=== PATIENT | male | born 1955 ===

== ENCOUNTER 2020-03-11 10:01 | Emergency (ER) | payer MEDICARE, SELFPAY ==
--- NOTE | 2020-03-11 10:08 | XR_ITS ---
WS: [id number] Exam: XR wrist LT min 3V* [id number] Date/Time of Exam: 03/11/2020 10:11 AM Reason For Exam: injury No acute fracture or dislocation. There appears to be dorsal subluxation of the distal ulna in relati onship to the radius. Mild dorsal soft tissue swelling. XR/XR wrist LT min 3V* [id number] IMPRESSION: 1. No fracture or dislocation. 2. There is probably dorsal subluxation of the distal ulna with the dorsal soft tissue swelling of the wrist.
[2020-03-11 10:11] VITALS: BP 133/70; PULSE 62; RESP 12; TEMP 36.2; O2SAT 99; BMI 27.8
[2020-03-11 10:19] VITALS: PULSE 64; RESP 18; O2SAT 98
--- NOTE | 2020-03-11 11:22 | W.ED.EXTPRO ---
HPI - Extremity Problem General: Chief complaint: Extremity Injury, Upper Stated complaint: left wrist pain Time Seen by Provider: 03/11/20 10:08 Source: patient Mode of arrival: ambulatory Limitations: no limitations History of Present Illness: HPI Narrative: 64 Male patient presents to ER with left wrist pain that started yesterdady. Pt states he did not have any injury of trauma but does have history of gout. Pt denies any fever, numbness or tingling. Associated symptoms: Deny chest pain, fever(s) or rash Review of Systems Const: Denies: fever(s), chills, body aches, change in appetite, change in weight, fatigue, malaise or diaphoresis Eyes: Denies: change in vision, blurry vision, blind spots, photophobia, eye discomfort, eye discharge, eye redness, floaters or seeing flashes ENMT: Denies: throat pain, uvular edema, enlarged tonsils, odynophagia, hoarseness, mouth pain, swelling of lips/tongue, oral sores, bleeding gums, dental pain, dry mouth, ear or mastoid pain, ear discharge, change in hearing, tinnitus, disequilibrium, nasal discharge, nasal congestion, post nasal drip or sinus pain Card: Denies: chest pain, palpitations, irregular heart rhythm, edema, swelling of feet/ankles, lightheadedness, syncope, pre-syncope, dyspnea on exertion, orthopnea, leg pain with exertion or acrocyanosis Resp: Denies: dyspnea, productive cough, non-productive cough, wheezing, stridor, pain on inspiration, change in phlegm color, hemoptysis or chest congestion GI: Denies: abdominal pain, nausea, vomiting, hematemesis, dysphagia, diarrhea, constipation, GI cramping, change in bowel habits or rectal pain : Denies: flank pain, dysuria, urinary frequency, urinary urgency, urinary hesitancy or hematuria Musc: Reports: extremity pain; Denies: neck pain, back pain, extremity swelling, joint pain, joint swelling, joint redness or deformity Skin/Breast: Denies: rash, pruritus, erythema, sores, new lesions, changes in skin color or dry skin Neuro: Denies: headache(s), numbness in extremities, weakness in extremities, sensory changes, lack of coordination, difficulty walking, frequent falls, dizziness, vertigo, confusion, behavioral changes, Slurred speech present, difficulty communicating thoughts or seizure-like activity Psych: Denies: anxiety, depression, suicidal ideation or homicidal ideation Endo: Denies: polyuria, polydipsia, tired all the time, cold intolerance, excessive sweating, flushing, hot flashes or heat intolerance Chucky/Lymph: Denies: easy bruising, easy bleeding, petechiae, purpura, enlarged lymph nodes or tender lymph nodes All/Imm: Denies: urticaria, throat swelling, tongue swelling, facial swelling, acute wheezing or itchy eyes PFSH ED PFSH: Social History Smoking and tobacco status: never smoked Alcohol intake: never Substance/Drug Use: never Physical Exam Const: COMMON NORMALS: no acute distress, average body habitus, no limitations and healthy appearing HENMT: COMMON NORMALS: normocephalic and atraumatic HEAD & SCALP: normocephalic and atraumatic THROAT: no uvular edema Eye: COMMON NORMALS: Equal, round and reactive pupils present PUPIL: Yes Equal, round and reactive pupils present Neck/C-Spine: COMMON NORMALS: full ROM Lymph: LYMPHATIC: no lymphadenopathy noted Resp: COMMON NORMALS: normal respiratory effort, No retractions, No use of accessory muscles and clear to auscultation bilaterally AUSCULTATION: clear to auscultation bilaterally Cardio: COMMON NORMALS: regular rate and regular rhythm RATE: regular rate RHYTHM: regular rhythm Extremity: COMMON NORMALS: capillary refill normal, no joint enlargement, no calf tenderness and no pedal edema LEFT UPPER EXTREMITY: Yes wrist Left wrist: Yes inspection (Erythematous and warm to touch), Yes palpation (Mildly tender), Yes ROM (Good range of motion) and Yes neurovascular exam (Neurovascularly intact distally) Course Vital Signs: Vital signs: Vital Signs Temperature 97.2 F L 03/11/20 10:11 Pulse Rate 64 03/11/20 10:19 Respiratory Rate 18 03/11/20 10:19 Blood Pressure 133/70 03/11/20 10:11 Pulse Oximetry 98 03/11/20 10:19 MDM - Extremity (Nontraumatic) MDM Narrative: Medical decision making narrative: Patient is well-appearing nontoxic in no acute distress. Given patient's findings on x-ray I will go ahead and place him in a cock-up wrist splint this does seem chronic in nature patient does not have any tenderness at the site of subluxation on x-ray again I will go ahead and place him in a cock-up wrist splint and have him follow-up with Ortho. I will also treat patient for a gout flareup I will give patient indomethacin and short course of steroids and have him follow-up with his primary care physician. Patient is neurovascularly intact distal to injury. Patient is afebrile. Patient has good cap refill. Discharge Plan Discharge Patient Disposition: Home Clinical Impression: Gout, Acute wrist pain Condition: Stable Prescriptions: New prednisone 20 mg tablet 20 mg PO BID 5 Days Qty: 10 RF: 0 indomethacin 25 mg capsule 25 mg PO QID Qty: 20 RF: 0 Discharge Orders: Discharge ED (Routine); Ordered 03/11/20 Ordered By: Teresa Monzon Discharge Diet: Advance as tolerated Discharge Activity: Increase activity as tolerated Activity Restrictions/Additional Instructions: Please wear splint for comfort and follow up with Ortho as needed. Take meds as prescribed Please follow up with PCP regarding Gout Please follow up with Ortho and continue to wear splint for comfort until seen by ortho Coding Level of Care Code ED Dna Sequencing Associate for Lilia Farmer
--- NOTE | 2020-03-14 10:48 | DCPLANNER ---
manager food beverage had message to schedule a follow up appointment for patient with ortho. manager food beverage called the ortho clinic, spoke with Jessa, gave clinic patients information. manager food beverage was told that patients information would be printed and reviewed. Clinic will call patient with appointment information.
--- NOTE | 2020-03-22 07:56 | DCPLANNER ---
Patient had a follow up appointment scheduled for 03.16.20 with ortho - patient did not attend appointment.
== END 2020-03-11 11:55 | disposition home or self-care (01) ==
PROVIDERS: Emergency Provider Registered Nurse
DX: M25.532 Pain in left wrist (principal); M10.9 Gout, unspecified
CPT/HCPCS: 12345; 29125; 73110; 99281; 99283

== ENCOUNTER 2020-07-25 04:57 | Emergency (ER) | payer MEDICARE, SELFPAY ==
[2020-07-25 05:03] VITALS: BP 126/65; PULSE 70; RESP 18; TEMP 36.2; O2SAT 96; BMI 26.6
--- NOTE | 2020-07-25 05:23 | CTR_ITS ---
PROCEDURE INFORMATION: Exam: CT Head Without Contrast Exam date and time: 07/25/2020 5:33 AM Age: 65 years old Clinical indication: Other: Generalized weakness; Additional info: Headache, weight loss, weakness TECHNIQUE: Imaging protocol: Computed tomography of the head without contrast. Radiation optimization: All CT scans at this facility use at least one of these dose optimization techniques: automated exposure control; mA and/or kV adjustment per patient size (includes targeted exams where dose is matched to clinical indication); or iterative reconstruction. COMPARISON: No relevant prior studies available. RADIATION DOSE METRICS: Total DLP (mGy-cm): 912.54 FINDINGS: Brain: No intracranial hemorrhage, edema or other acute abnormalities are seen in the brain. There is no mass effect or midline shift. There is moderate chronic atrophy with prominence of the ventricles and sulci. Cerebral ventricles: Ventricles are prominent due to chronic atrophy. Bones/joints: Unremarkable. No acute fracture. Paranasal sinuses: Visualized sinuses are unremarkable. No fluid levels. Mastoid air cells: Visualized mastoid air cells are well aerated. Soft tissues: Unremarkable. CT/CT head wo con* [id number] IMPRESSION: No acute intracranial abnormality. Radiation Dose CTDIVOL = (mGy): DLP = 912.54 (mGy-cm)
--- NOTE | 2020-07-25 05:23 | XRR_ITS ---
PROCEDURE INFORMATION: Exam: XR Chest Exam date and time: 07/25/2020 5:33 AM Age: 65 years old Clinical indication: Other: Weakness TECHNIQUE: Imaging protocol: XR of the chest. Views: 1 view. COMPARISON: No relevant prior studies available. FINDINGS: Lungs: Unremarkable. No consolidation. Pleural spaces: Unremarkable. No pleural effusion. No pneumothorax. Heart/Mediastinum: Unremarkable. No cardiomegaly. Bones/joints: Unremarkable. XR/XR chest 1V portable [id number] IMPRESSION: No acute findings.
--- NOTE | 2020-07-25 05:24 | ECG_ITS ---
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 Measurements Intervals [place] Rate: 59 P: 55 LA: 178 QRS: -61 QRSD: 85 T: 54 QT: 401 QTc: 398 Interpretive Statements SINUS BRADYCARDIA MARKED LEFT AXIS DEVIATION [QRS AXIS < -30] WARNING: DATA QUALITY MAY AFFECT INTERPRETATION No previous ECG available for comparison Electronically Signed On 07-26-2020 0:37:59 CDT by Ant Layne M.D. [id number]
[2020-07-25] MEDS: sodium chloride 0.9% 1,000 ML 999 ML IV (05:29)
--- NOTE | 2020-07-25 05:29 | PC.NURSE ---
Provided pt urinal and request spec.
[2020-07-25 05:30] LABS: Basophils % 0.4 %; Eosinophils % 0.4 %; Hemoglobin 14.1 g/dL (11.7-16.6); Lymphocytes # 1.8 10^3/uL (0.8-4.8); Lymphocytes % 35.4 %; Mean Corpuscular HGB Conc 32.8 g/dL (30.0-36.0); Mean Corpuscular Hemoglobin 29.1 pg (28.0-34.0); Mean Corpuscular Volume 88.8 fL (80-94); Mean Platelet Volume 9.1 fL (7.4-10.4); Monocytes # 0.4 10^3/uL (0.2-0.9); Monocytes % 8.1 %; Neutrophils # 2.81 10^3/uL (1.8-7.7); Neutrophils % 55.3 %; Nucleated Red Blood Cells % 0 %; Platelet Count 215 10^3/cmm (130-400); Red Blood Count 4.84 10^6/uL (4.1-5.3); Red Cell Distribution Width 12.9 % (12.1-15.1); White Blood Count 5.1 10^3/uL (4.0-10.0)
--- NOTE | 2020-07-25 05:35 | ED_ITS ---
HPI - Weakness General: Chief complaint: Weakness Stated complaint: weakness/loss of appetite Time Seen by Provider: 07/25/20 05:03 History of Present Illness: HPI Narrative: 65-year-old male who is a poor historian. He gives a rather nebulous history weight loss to generalized weakness and fatigue over at least the last month, maybe longer. He notes his weight loss has been 20 pounds or so. Evidently he ran a fever 5 nights ago, but none since. No chills or sweats at night. No significant chest pain or shortness of breath. No vomiting. He notes a headache, that again is a nebulous poorly localized headache. He notes that he has multiple family members with liver problems MD Complaint: generalized weakness and lack of energy Onset (ago): unknown Duration: constant Location: generalized Migration: none Severity: moderate Relieving factors: none Exacerbating factors: none Associated symptoms: Reports fever(s) (1), headache(s) and nausea; Denies chest pain, confusion, diaphoresis or vomiting Review of Systems Const: Reports: fever(s) (1); Denies: diaphoresis Card: Denies: chest pain GI: Reports: nausea; Denies: abdominal pain or vomiting : Denies: flank pain or difficulty urinating Musc: Reports: muscle weakness Neuro: Reports: headache(s); Denies: numbness in extremities, dizziness or confusion PFS ED PFSH: Social History Smoking and tobacco status: never smoked Alcohol intake: never Physical Exam Const: COMMON NORMALS: patient oriented x3 GENERAL APPEARANCE: well developed ORIENTATION/CONSCIOUSNESS: Yes oriented to person, Yes oriented to place and Yes oriented to time HENMT: COMMON NORMALS: normocephalic, external ears normal and Normal external nose present HEAD & SCALP: normocephalic FACE & SINUS: normal facial exam NOSE: Normal external nose present and No nasal discharge present EXTERNAL EAR: Yes external ears normal Eye: COMMON NORMALS: Equal, round and reactive pupils present, EOMs intact bilaterally and conjunctivae normal EYELID: eyelids normal CONJUNCTIVA: Yes conjunctivae normal PUPIL: Yes Equal, round and reactive pupils present Neck/C-Spine: GENERAL: No tracheal deviation Chest: COMMONS NORMALS: normal inspection of the chest CHEST: No tenderness Resp: COMMON NORMALS: clear to auscultation bilaterally EFFORT & INSPECTION: No tachypneic, No respiratory distress, No retractions, No uses accessory muscles and No tracheal deviation AUSCULTATION: clear to auscultation bilaterally, no rhonchi, no wheezes and lung sounds not diminished Cardio: COMMON NORMALS: regular rate and regular rhythm RATE: regular rate RHYTHM: regular rhythm HEART SOUNDS: no murmurs PERIPHERAL PULSES: radial pulses present GI: INSPECTION: No abdominal distension AUSCULTATION: No Hyperactive bowel sounds present and No Hypoactive bowel sounds present PALPATION: No Guarding due to palpation present (GI) and No Rigid due to palpation PERCUSSION: no dullness to percussion and no tympanic to percussion Neuro: COMMON NORMALS: patient oriented x3 and CN's II-XII intact bilaterally SENSORIUM/ORIENTATION: Yes oriented to person, Yes oriented to place and Yes oriented to time COORDINATION/BALANCE: [id number] test normal SPEECH: speech normal SENSORY EXAM: Yes extremities (Normal) MOTOR EXAM: Pronator motor function not present and no tremor noted COORDINATION: [id number] test normal Psych: COMMON NORMALS: mental status grossly normal Skin: COMMON NORMALS: no rashes or lesions noted GENERAL SKIN EXAM: no rashes or lesions noted Course Vital Signs: Vital signs: Vital Signs Temperature 97.1 F L 07/25/20 05:03 Pulse Rate 74 07/25/20 06:34 Respiratory Rate 16 07/25/20 06:34 Blood Pressure 116/60 07/25/20 06:34 Pulse Oximetry 99 07/25/20 06:34 MDM - Weakness MDM Narrative: Medical decision making narrative: Mild drop in sodium of 132. White blood cell count is 5.1. Hemoglobin 14. Electrolytes and creatinine are normal. His liver enzymes are normal. His INR is 0.0 0.95. His chest x-ray is negative. CT of the head is negative for anything acute. No mass. Urinalysis is negative as well no cause for his fatigue and weight loss identified. Because he ran a fever last week, one could consider COVID-19 testing. Lab Data: Labs: Lab Results 07/25/20 07/25/20 07/25/20 Range/Units 05:07 05:07 05:07 WBC 5.1 (4.0-10.0) 10^3/ uL RBC 4.84 (4.1-5.3) 10^6/u L Hgb 14.1 (11.7-16.6) g/dL Hct 43.0 (42.0-52.0) % MCV 88.8 (80-94) fL MCH 29.1 (28.0-34.0) pg MCHC 32.8 (30.0-36.0) g/dL RDW 12.9 (12.1-15.1) % Plt Count 215 (130-400) 10^3/c mm MPV 9.1 (7.4-10.4) fL Neut % (Auto) 55.3 % Lymph % (Auto) 35.4 % Sampson % (Auto) 8.1 % Eos % (Auto) 0.4 % Baso % (Auto) 0.4 % Neut # (Auto) 2.81 (1.8-7.7) 10^3/u L Lymph # (Auto) 1.8 (0.8-4.8) 10^3/u L Sampson # (Auto) 0.4 (0.2-0.9) 10^3/u L Eos # (Auto) 0.0 (0.0-0.8) 10^3/u L Baso # (Auto) 0.0 (0.0-0.1) 10^3/u L Nucleated RBC % (a uto) 0 % Nucleated RBCs # 0.0 /100WBC PT 12.90 (12.1-14.9) SECO NDS INR 0.95 (0.8-1.2) Sodium 132 L (136-145) mmol/L Potassium 3.9 (3.5-5.1) mmol/L Chloride 99 (98-107) mmol/L Carbon Dioxide 24 (22-29) mmol/L Anion Gap 12.9 (5-19) BUN 11 (8-23) mg/dL Creatinine 0.8 (0.7-1.2) mg/dL GFR Calculation 96.4 (90-130) mL/min Glucose 101 (65-115) mg/dL Calculated Osmolal ity 274 L (285-295) mOsm/k g Lactate (0.5-2.2) mmol/L Calcium 8.6 (8.5-10.5) mg/dL Total Bilirubin 0.8 (0.15-1.2) mg/dL AST 33 (0-40) U/L ALT 31 (0-41) U/L Alkaline Phosphata se 76 (40-130) IU/L Creatine Kinase 104 (39-308) U/L C-Reactive Protein 24.0 H (0.0-4.9) mg/L Total Protein 7.3 (6.6-8.7) g/dL Albumin 3.7 (3.5-5.2) g/dL Globulin 3.6 (1.3-4.6) g/dL Lipase 50 (13-60) U/L Urine Color (Yellow) Urine Appearance (CLEAR) Urine pH (5-7) Ur Specific Gravit y (1.005-1.030) Urine Protein (Negative) Urine Glucose (UA) (Normal) Urine Ketones (Negative) Urine Blood (Negative) Urine Nitrate (Negative) Urine Bilirubin (Negative) Urine Urobilinogen (Negative) mg/dL Ur Leukocyte Charlette ase (Negative) 07/25/20 07/25/20 Range/Units 05:07 05:45 WBC (4.0-10.0) 10^3/ uL RBC (4.1-5.3) 10^6/u L Hgb (11.7-16.6) g/dL Hct (42.0-52.0) % MCV (80-94) fL MCH (28.0-34.0) pg MCHC (30.0-36.0) g/dL RDW (12.1-15.1) % Plt Count (130-400) 10^3/c mm MPV (7.4-10.4) fL Neut % (Auto) % Lymph % (Auto) % Sampson % (Auto) % Eos % (Auto) % Baso % (Auto) % Neut # (Auto) (1.8-7.7) 10^3/u L Lymph # (Auto) (0.8-4.8) 10^3/u L Sampson # (Auto) (0.2-0.9) 10^3/u L Eos # (Auto) (0.0-0.8) 10^3/u L Baso # (Auto) (0.0-0.1) 10^3/u L Nucleated RBC % (a uto) % Nucleated RBCs # /100WBC PT (12.1-14.9) SECO NDS INR (0.8-1.2) Sodium (136-145) mmol/L Potassium (3.5-5.1) mmol/L Chloride (98-107) mmol/L Carbon Dioxide (22-29) mmol/L Anion Gap (5-19) BUN (8-23) mg/dL Creatinine (0.7-1.2) mg/dL GFR Calculation (90-130) mL/min Glucose (65-115) mg/dL Calculated Osmolal ity (285-295) mOsm/k g Lactate 0.9 (0.5-2.2) mmol/L Calcium (8.5-10.5) mg/dL Total Bilirubin (0.15-1.2) mg/dL AST (0-40) U/L ALT (0-41) U/L Alkaline Phosphata se (40-130) IU/L Creatine Kinase (39-308) U/L C-Reactive Protein (0.0-4.9) mg/L Total Protein (6.6-8.7) g/dL Albumin (3.5-5.2) g/dL Globulin (1.3-4.6) g/dL Lipase (13-60) U/L Urine Color Yellow (Yellow) Urine Appearance Clear (CLEAR) Urine pH 6.5 (5-7) Ur Specific Gravit y 1.015 (1.005-1.030) Urine Protein Neg (Negative) Urine Glucose (UA) Norm (Normal) Urine Ketones Negative (Negative) Urine Blood Neg (Negative) Urine Nitrate Negative (Negative) Urine Bilirubin 1+ H (Negative) Urine Urobilinogen 8 H (Negative) mg/dL Ur Leukocyte Charlette ase Negative (Negative) Discharge Plan Discharge Patient Disposition: Home Clinical Impression: Weakness generalized Condition: Stable Prescriptions: No Action indomethacin 25 mg capsule 25 mg PO QID Qty: 20 RF: 0 Discharge Orders: Discharge ED (Routine); Ordered 07/25/20 Ordered By: Ramana Chang Discharge Diet: Advance as tolerated Discharge Activity: Increase activity as tolerated Patient Instructions: Weakness (Generalized) Activity Restrictions/Additional Instructions: Return for worsening headache, return of fever, mental status changes, lethargy, other concerning symptoms. A referral has been made for you a primary care physician to follow-up with. You should get a call in the next couple of days with that appointment. Coding Level of Care Code ED Director Of Recruiting for Chg Fwd Exam Comprehensive
[2020-07-25 05:38] VITALS: BP 120/69; PULSE 72; RESP 17; O2SAT 99
[2020-07-25 05:38] LABS: INR 0.95 (0.8-1.2)
[2020-07-25 05:40] LABS: Lactate (Lactic Acid level) 0.9 mmol/L (0.5-2.2)
[2020-07-25 05:41] LABS: Alanine Aminotransferase 31 U/L (0-41); Albumin Level 3.7 g/dL (3.5-5.2); Alkaline Phosphatase 76 IU/L (40-130); Anion Gap 12.9 (5-19); Aspartate Amino Transferase 33 U/L (0-40); Blood Urea Nitrogen 11 mg/dL (8-23); Calcium 8.6 mg/dL (8.5-10.5); Carbon Dioxide 24 mmol/L (22-29); Chloride 99 mmol/L (98-107); Creatine Phosphokinase 104 U/L (39-308); Globulin 3.6 g/dL (1.3-4.6); Glomerular Filtration Rate 96.4 mL/min (90-130); Glucose 101 mg/dL (65-115); Lipase 50 U/L (13-60); Osmolality Calculated 274 mOsm/kg (285-295); Potassium 3.9 mmol/L (3.5-5.1); Sodium 132 mmol/L (136-145); Total Bilirubin 0.8 mg/dL (0.15-1.2); Total Protein 7.3 g/dL (6.6-8.7)
[2020-07-25 05:59] LABS: Add Urine Microscopic? NO; Charge for UA Resulting for Rev
[2020-07-25 06:02] LABS: Bilirubin Urine 1+ (Negative); Blood Urine Neg (Negative); Glucose Urine UA Norm (Normal); Ketones Urine Negative (Negative); Leukocyte Esterase Urine Negative (Negative); Nitrate Urine Negative (Negative); Protein Urine Neg (Negative); Specific Gravity, Urine 1.015 (1.005-1.030); Urine Appearance Clear (CLEAR); Urine Color Yellow (Yellow); Urobilinogen Urine 8 mg/dL (Negative); pH Urine 6.5 (5-7)
[2020-07-25 06:34] VITALS: BP 116/60; PULSE 74; RESP 16; O2SAT 99
[2020-07-25 06:46] VITALS: BP 120/70; PULSE 75; RESP 16; O2SAT 99
[2020-07-25 16:42] LABS: Coronavirus Test Green County Detected
--- NOTE | 2020-07-26 09:38 | PC.NURSE ---
pt contacted and given the results of his COVID test
--- NOTE | 2020-07-26 15:38 | DCPLANNER ---
corporate manager had message to speak with patient about getting established with a primary care physician. corporate manager called phone number [phone], unable to speak with patient and unable to leave a voicemail at this time.
== END 2020-07-25 06:47 | disposition home or self-care (01) ==
PROVIDERS: Emergency Provider Emergency Medicine
DX: R53.1 Weakness (principal)
CPT/HCPCS: 70450; 71045; 80053; 81003; 82550; 83605; 83690; 85025; 85610; 86140; 87635; 93005; 96361; 96374; 96375; 99284; J7030

== ENCOUNTER 2020-10-17 14:13 | Emergency (ER) | payer OTHER, SELFPAY ==
--- NOTE | 2020-10-17 14:43 | ECG_ITS ---
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 Measurements Intervals [place] Rate: 59 P: 59 MA: 182 QRS: -47 QRSD: 84 T: 37 QT: 417 QTc: 414 Interpretive Statements SINUS BRADYCARDIA MARKED LEFT AXIS DEVIATION [QRS AXIS < -30] Compared to ECG 07/25/2020 05:09:16 No significant changes Electronically Signed On 10-17-2020 17:31:07 CDT by Ziggy Ramon M.D. [email or web address]
[2020-10-17 16:02] VITALS: BP 160/90; PULSE 57; RESP 17; TEMP 37.1; O2SAT 99
[2020-10-17 17:09] LABS: Basophils # 0.1 10^3/uL (0.0-0.1); Eosinophils # 0.2 10^3/uL (0.0-0.8); Eosinophils % 3.4 %; Hemoglobin 14.3 g/dL (11.7-16.6); Lymphocytes % 37.8 %; Mean Corpuscular HGB Conc 32.5 g/dL (30.0-36.0); Mean Corpuscular Hemoglobin 29.8 pg (28.0-34.0); Mean Corpuscular Volume 91.7 fL (80-94); Mean Platelet Volume 8.9 fL (7.4-10.4); Monocytes # 0.3 10^3/uL (0.2-0.9); Monocytes % 6.3 %; Neutrophils % 51.5 %; Nucleated Red Blood Cells % 0 %; Platelet Count 179 10^3/cmm (130-400); Red Cell Distribution Width 13.7 % (12.1-15.1); White Blood Count 5.2 10^3/uL (4.0-10.0)
[2020-10-17 17:30] LABS: Alanine Aminotransferase 19 U/L (0-41); Albumin Level 4.1 g/dL (3.5-5.2); Alkaline Phosphatase 75 IU/L (40-130); Anion Gap 15.1 (5-19); Aspartate Amino Transferase 22 U/L (0-40); Blood Urea Nitrogen 7 mg/dL (8-23); Calcium 8.8 mg/dL (8.5-10.5); Carbon Dioxide 24 mmol/L (22-29); Chloride 104 mmol/L (98-107); Globulin 3.2 g/dL (1.3-4.6); Glomerular Filtration Rate 134.4 mL/min (90-130); Glucose 86 mg/dL (65-115); Osmolality Calculated 285 mOsm/kg (285-295); Potassium 4.1 mmol/L (3.5-5.1); Sodium 139 mmol/L (136-145); Total Bilirubin 0.5 mg/dL (0.15-1.2); Total Protein 7.3 g/dL (6.6-8.7)
== END 2020-10-17 20:04 ==
LOC: ER 14:25
PROVIDERS: Physician Assistant
DX: Z53.21 Procedure and treatment not carried out due to patient leaving prior to being seen by health care provider (principal)
CPT/HCPCS: 80053; 85025; 93005

== ENCOUNTER 2020-10-18 13:32 | Observation (INO) | payer OTHER, MEDICARE, SELFPAY ==
[2020-10-18 13:47] VITALS: BP 149/83; PULSE 61; RESP 19; TEMP 37; O2SAT 99
--- NOTE | 2020-10-18 20:44 | CTR_ITS ---
PROCEDURE INFORMATION: Exam: CT Angiography Head With Contrast, Arteriography Exam date and time: 10/18/2020 8:44 PM Age: 65 years old Clinical indication: Dizziness and giddiness; Additional info: Vertigo x 1 day, evaluate for vascular injuries TECHNIQUE: Imaging protocol: Computed tomography angiography of the head with contrast. Exam focused on the arteries. 3D rendering (Not supervised by radiologist): MIP and/or 3D reconstructed images were created by the technologist. Radiation optimization: All CT scans at this facility use at least one of these dose optimization techniques: automated exposure control; mA and/or kV adjustment per patient size (includes targeted exams where dose is matched to clinical indication); or iterative reconstruction. Contrast material: OMNI 350; Contrast volume: 95 ml; Contrast route: INTRAVENOUS (IV); COMPARISON: CT head wo con* [id number] 07/25/2020 5:49 AM RADIATION DOSE METRICS: Total DLP (mGy-cm): 2270 FINDINGS: ANTERIOR CIRCULATION: Right internal carotid artery: There is marked atherosclerotic disease with focal high-grade stenosis and near occlusion in the distal cavernous portion of the right internal carotid artery. See axial series 3, image 107 and sagittal series 602, image 58. Right middle cerebral artery: Unremarkable. No occlusion or significant stenosis. No aneurysm. Right anterior cerebral artery: Unremarkable. No occlusion or significant stenosis. No aneurysm. Left internal carotid artery: There is moderate atherosclerotic disease with less than 50% stenosis in the cavernous portion of the left internal carotid artery. Left middle cerebral artery: Unremarkable. No occlusion or significant stenosis. No aneurysm. Left anterior cerebral artery: Unremarkable. No occlusion or significant stenosis. No aneurysm. POSTERIOR CIRCULATION: Right vertebral artery: Unremarkable. No occlusion or significant stenosis. No aneurysm. Left vertebral artery: Unremarkable. No occlusion or significant stenosis. No aneurysm. Basilar artery: Unremarkable. No occlusion or significant stenosis. No aneurysm. Right posterior cerebral artery: Unremarkable. No occlusion or significant stenosis. No aneurysm. Left posterior cerebral artery: Unremarkable. No occlusion or significant stenosis. No aneurysm. Veins: Dural venous sinuses are patent. The left transverse and sigmoid sinus are hypoplastic. Brain: No definite mass, mass effect, or midline shift. Cerebral ventricles: No ventriculomegaly. Bones/joints: Unremarkable. No acute fracture. Soft tissues: Unremarkable. IMPRESSION: 1. 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 2. Atherosclerotic disease with less than 50% stenosis in the of the cavernous portion of the left internal carotid artery. PROCEDURE INFORMATION: Exam: CT Angiography Neck With Contrast Exam date and time: 10/18/2020 8:44 PM Age: 65 years old Clinical indication: Dizziness and giddiness; Additional info: Vertigo x 1 day, evaluate for vascular injuries TECHNIQUE: Imaging protocol: Computed tomography angiography of the neck with contrast. 3D rendering (Not supervised by radiologist): MIP and/or 3D reconstructed images were created by the technologist. Radiation optimization: All CT scans at this facility use at least one of these dose optimization techniques: automated exposure control; mA and/or kV adjustment per patient size (includes targeted exams where dose is matched to clinical indication); or iterative reconstruction. Contrast material: OMNI 350; Contrast volume: 95 ml; Contrast route: INTRAVENOUS (IV); COMPARISON: CT head wo con* [id number] 07/25/2020 5:49 AM RADIATION DOSE METRICS: Total DLP (mGy-cm): 2270 FINDINGS: Right common carotid artery: No stenosis. No dissection or occlusion. Right internal carotid artery: There is mild atherosclerotic disease at the origin of the right internal carotid artery with less than 50% stenosis. Right external carotid artery: No occlusion or stenosis of the origin. Left common carotid artery: No stenosis. No dissection or occlusion. Left internal carotid artery: There is mild atherosclerotic disease at the origin of the left internal carotid artery with less than 50% stenosis. Left external carotid artery: No occlusion or stenosis of the origin. Right vertebral artery: No stenosis. No dissection or occlusion. Left vertebral artery: No stenosis. No dissection or occlusion. Soft tissues: Soft tissues in the neck and thoracic inlet are unremarkable. Bones/joints: No acute fracture. Multilevel disc findings: There is moderate degenerative disc disease in the cervical spine. Lungs: Lung apices are clear. CT/CT angio headneck* [id number] IMPRESSION: No significant arterial stenosis. No occlusion or dissection. REFERENCES: NASCET CRITERIA. The degree of internal carotid artery stenosis is based on NASCET criteria. Normal is no stenosis. Mild is less than 50% stenosis. Moderate is 50-69% stenosis. Severe is 70% to 99% stenosis. Total occlusion is no detectable patent lumen. Radiation Dose CTDIVOL = (mGy): DLP = 2270~2270 (mGy-cm)
--- NOTE | 2020-10-18 20:44 | ECG_ITS ---
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 Measurements Intervals [place] Rate: 55 P: 58 WV: 188 QRS: -82 QRSD: 101 T: 29 QT: 415 QTc: 398 Interpretive Statements SINUS BRADYCARDIA MARKED LEFT AXIS DEVIATION [QRS AXIS < -30] Compared to ECG 10/17/2020 16:11:16 No significant changes Electronically Signed On 10-20-2020 7:41:09 CDT by Marielos Davey M.D. [email or web address] [facility].Alorum/store/[id number]
--- NOTE | 2020-10-18 20:44 | CTR_ITS ---
PROCEDURE INFORMATION: Exam: CT Head Without Contrast Exam date and time: 10/18/2020 8:44 PM Age: 65 years old Clinical indication: Pain; Dizziness; Headache; Additional info: Vertigo, rule out mass TECHNIQUE: Imaging protocol: Computed tomography of the head without contrast. Radiation optimization: All CT scans at this facility use at least one of these dose optimization techniques: automated exposure control; mA and/or kV adjustment per patient size (includes targeted exams where dose is matched to clinical indication); or iterative reconstruction. COMPARISON: CT head wo con* [id number] 07/25/2020 5:49 AM RADIATION DOSE METRICS: Total DLP (mGy-cm): 938.5 FINDINGS: Brain: There is mild diffuse cerebral atrophy. There is no acute intracranial hemorrhage. Cerebral ventricles: There is no significant ventricular dilation. The basal cisterns are unremarkable. Paranasal sinuses: The paranasal sinuses are clear. Mastoid air cells: The mastoid air cells are clear. Bones/joints: There is a chronic fracture of the right medial orbital wall. The calvarium is intact. Soft tissues: The visible extracranial soft tissues are unremarkable. CT/CT head wo con* [id number] IMPRESSION: No acute intracranial abnormality. Radiation Dose CTDIVOL = (mGy): DLP = 938.5 (mGy-cm)
[2020-10-18 20:53] VITALS: BP 166/91; PULSE 54; RESP 16; O2SAT 99
[2020-10-18] MEDS: sodium chloride 0.9% 500 ML IV (21:01)
[2020-10-18] MEDS: meclizine 25 mg tablet 50 MG PO (21:02)
[2020-10-18] MEDS: iohexol 350 mg/mL 100 mL Btl IV (21:11)
[2020-10-18 21:12] LABS: Basophils % 0.7 %; Eosinophils # 0.2 10^3/uL (0.0-0.8); Eosinophils % 2.5 %; Hematocrit 46.5 % (42.0-52.0); Hemoglobin 14.8 g/dL (11.7-16.6); Lymphocytes # 2.4 10^3/uL (0.8-4.8); Lymphocytes % 40.1 %; Mean Corpuscular HGB Conc 31.8 g/dL (30.0-36.0); Mean Corpuscular Hemoglobin 28.7 pg (28.0-34.0); Mean Corpuscular Volume 90.3 fL (80-94); Mean Platelet Volume 8.8 fL (7.4-10.4); Monocytes # 0.5 10^3/uL (0.2-0.9); Monocytes % 7.5 %; Neutrophils # 2.97 10^3/uL (1.8-7.7); Nucleated Red Blood Cells % 0 %; Platelet Count 199 10^3/cmm (130-400); Red Blood Count 5.15 10^6/uL (4.1-5.3); Red Cell Distribution Width 13.8 % (12.1-15.1)
[2020-10-18 21:28] LABS: INR 0.96 (0.8-1.2)
[2020-10-18 21:30] LABS: Partial Thromboplastin Time 33.6 SECONDS (23.9-36.7)
[2020-10-18 21:33] LABS: Anion Gap 12.7 (5-19); Blood Urea Nitrogen 7 mg/dL (8-23); Calcium 9.2 mg/dL (8.5-10.5); Carbon Dioxide 28 mmol/L (22-29); Chloride 102 mmol/L (98-107); Glomerular Filtration Rate 165.9 mL/min (90-130); Glucose 110 mg/dL (65-115); Osmolality Calculated 287 mOsm/kg (285-295); Potassium 3.7 mmol/L (3.5-5.1); Sodium 139 mmol/L (136-145)
[2020-10-18 21:52] LABS: Troponin T (5th) Once 6 ng/L (0-15)
--- NOTE | 2020-10-18 22:58 | ECG_ITS ---
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 Measurements Intervals [place] Rate: 54 P: 60 SD: 203 QRS: -80 QRSD: 88 T: 15 QT: 439 QTc: 419 Interpretive Statements SINUS BRADYCARDIA MARKED LEFT AXIS DEVIATION [QRS AXIS < -30] INFERIOR MYOCARDIAL INFARCTION [40+ ms Q WAVE AND/OR ST/T ABNORMALITY IN II/aVF], PROBABLY OLD Compared to ECG 10/18/2020 20:51:16 Myocardial infarct finding now present Electronically Signed On 10-20-2020 10:01:53 CDT by Marielos Davey M.D. [id number]
--- NOTE | 2020-10-18 23:18 | W.ED.GENADLT ---
HPI - General Adult General: Chief complaint: Dizziness Stated complaint: dizzy, headache Time Seen by Provider: 10/18/20 20:47 History of Present Illness: HPI narrative: Patient is a 65-year-old male with history of ?CAD, hypertension who presents to the emergency room with complaints of 20 of sudden onset vertigo-like symptoms with diaphoresis AND complete L sided weakness lasting for <1 minute. Patient states that symptoms started 2 days ago with he was at rest at home. Since then, reports vertigo symptoms lasting for less than a minute at a time. Patient has had a couple episodes throughout the day. In addition, every time patient stands up he feels lightheaded and sweaty. Patient denies any other focal neurological deficit during the episodes of vertigo. Occasionally patient has ringing in the year, however denies concurrent symptoms. Patient denies any slurring of speech, facial droop, diplopia, and or difficulty swallowing. Onset:22 hrs ago Duration:2 hrs Location:home Severity:moderate/severe Review of Systems Narrative: Constitutional: No fever, no chills. HEENT: No vision changes CV: No chest pain, no palpitations PULM: no cough, no dyspnea. GI: No abdominal pain, no N/V/D. : No dysuria MSKEL: No muscle pain SKIN: No new rashes, no lesions. NEURO: No headache, no focal weakness. HEME: No visible bruises PSYCH: Normal mood PFSH ED PFSH: Medical History (Updated 10/19/20 @ 02:04 by Yvonne Parra MD) COVID-27 Jul 2020 Lung nodule Surgical abdomen Surgical History (Updated 10/19/20 @ 02:03 by Yvonne Parra MD) H/O wrist surgery Family History Mother Cancer Father Cancer Hypertension Denies family history of Diabetes CAD (coronary artery disease) Hyperlipidemia Psychiatric illness Suicide Lung disease Stroke Social History Smoking and tobacco status: former smoker Alcohol intake: never Physical Exam Narrative: EXAM NARRATIVE: Head: Atraumatic Eyes: PERRL, conjunctiva without injection ENT: Mucous membrane moist NECK: Supple, ROM intact LUNGS: LCTAB, no crackles/rhonchi CV: RRR ABDOMEN: Soft, nontender in all quadrants EXTREMITY: Normal ROM SKIN: No rash or erythema NEURO: Mental status: A/Ox3 CN II-XII tested and intact. Sensation intact to sharp/dull differentiation in all extremities. Motor: Normal tone and bulk. No abnormal movements appreciated. No pronator drift. Strength tested and 5/5 in bilateral wrist flexion/extension, elbow flexion/extension, shoulder abduction, straight leg raise, knee flexion/extension, ankle dorsiflexion/plantarflexion. Patient ambulates with a steady gait. Coordination: Finger to nose and heel to luna testing intact bilaterally. PSYCH: Normal mood and affect Course Vital Signs: Vital signs: Vital Signs Temperature 98.0 F 10/19/20 01:04 Pulse Rate 54 L 10/19/20 02:58 Respiratory Rate 18 10/19/20 01:04 Blood Pressure 150/81 10/19/20 02:58 Pulse Oximetry 98 10/19/20 01:04 MDM - General Adult MDM Narrative: Medical decision making narrative: Patient is a 65-year-old male with history of hypertension, questionable CAD who presents the emergency room with 22-hour onset of vertigo symptoms lasting for a minute at a time with transient left-sided weakness and diaphoresis. On exam, patient is neuro exam intact. No signs of posterior circulation involvement. CTA of the head and neck showed significant right ICA occlusion. Case was discussed with Dr. Arceo from neurology who recommended inpatient admission for MRI for further evaluation of vertigo-like symptoms as well as TIA work-up for transient R sided weakness. Received aspirin 325 mg and Plavix 75 mg. The right ICA occlusion does not explain patient's vertigo-like symptom, will need MRI for further evaluation of posterior fossa that may not be picked up on CT. Deposition: Admission for serial troponin, echo, MRI Lab Data: Labs: Lab Results 10/18/20 10/18/20 10/18/20 Range/Units 20:52 20:52 20:52 WBC 6.0 (4.0-10.0) 10^3/ uL RBC 5.15 (4.1-5.3) 10^6/u L Hgb 14.8 (11.7-16.6) g/dL Hct 46.5 (42.0-52.0) % MCV 90.3 (80-94) fL MCH 28.7 (28.0-34.0) pg MCHC 31.8 (30.0-36.0) g/dL RDW 13.8 (12.1-15.1) % Plt Count 199 (130-400) 10^3/c mm MPV 8.8 (7.4-10.4) fL Neut % (Auto) 49.0 % Lymph % (Auto) 40.1 % Clare % (Auto) 7.5 % Eos % (Auto) 2.5 % Baso % (Auto) 0.7 % Neut # (Auto) 2.97 (1.8-7.7) 10^3/u L Lymph # (Auto) 2.4 (0.8-4.8) 10^3/u L Clare # (Auto) 0.5 (0.2-0.9) 10^3/u L Eos # (Auto) 0.2 (0.0-0.8) 10^3/u L Baso # (Auto) 0.0 (0.0-0.1) 10^3/u L Nucleated RBC % (a uto) 0 % Nucleated RBCs # 0.0 /100WBC PT 13.10 (12.1-14.9) SECO NDS INR 0.96 (0.8-1.2) APTT 33.6 (23.9-36.7) SECO NDS Sodium 139 (136-145) mmol/L Potassium 3.7 (3.5-5.1) mmol/L Chloride 102 (98-107) mmol/L Carbon Dioxide 28 (22-29) mmol/L Anion Gap 12.7 (5-19) BUN 7 L (8-23) mg/dL Creatinine 0.5 L (0.7-1.2) mg/dL GFR Calculation 165.9 H (90-130) mL/min Glucose 110 (65-115) mg/dL Calculated Osmolal ity 287 (285-295) mOsm/k g Calcium 9.2 (8.5-10.5) mg/dL Troponin T Gen 5 n g/L (0-15) ng/L Troponin T 120 Min [place] (0-15) ng/L Delta Troponin T 10/18/20 10/18/20 Range/Units 20:52 23:01 WBC (4.0-10.0) 10^3/ uL RBC (4.1-5.3) 10^6/u L Hgb (11.7-16.6) g/dL Hct (42.0-52.0) % MCV (80-94) fL MCH (28.0-34.0) pg MCHC (30.0-36.0) g/dL RDW (12.1-15.1) % Plt Count (130-400) 10^3/c mm MPV (7.4-10.4) fL Neut % (Auto) % Lymph % (Auto) % Clare % (Auto) % Eos % (Auto) % Baso % (Auto) % Neut # (Auto) (1.8-7.7) 10^3/u L Lymph # (Auto) (0.8-4.8) 10^3/u L Clare # (Auto) (0.2-0.9) 10^3/u L Eos # (Auto) (0.0-0.8) 10^3/u L Baso # (Auto) (0.0-0.1) 10^3/u L Nucleated RBC % (a uto) % Nucleated RBCs # /100WBC PT (12.1-14.9) SECO NDS INR (0.8-1.2) APTT (23.9-36.7) SECO NDS Sodium (136-145) mmol/L Potassium (3.5-5.1) mmol/L Chloride (98-107) mmol/L Carbon Dioxide (22-29) mmol/L Anion Gap (5-19) BUN (8-23) mg/dL Creatinine (0.7-1.2) mg/dL GFR Calculation (90-130) mL/min Glucose (65-115) mg/dL Calculated Osmolal ity (285-295) mOsm/k g Calcium (8.5-10.5) mg/dL Troponin T Gen 5 n g/L 6 (0-15) ng/L Troponin T 120 Min [place] 6.00 (0-15) ng/L Delta Troponin T Not Reportable Imaging Data^: Other Imaging: Radiologist's impression: [employer] [id number] Scan ReportSigned Patient: Melinda Meng #: [id number]: [id number]#:[id number]/Sex: 65 / MADM Date: 10/18/20Loc: ERRoom/Bed:Attending Dr: Ordering Provider/Ordering MD: Dawn Atkins MD Date of Service: 10/18/20 Procedure(s): CT angio headneck* [id number] Accession Number(s): [id number] Report Number: [id number] PROCEDURE INFORMATION: Exam: CT Angiography Head With Contrast, Arteriography Exam date and time: 10/18/2020 8:44 PM Age: 65 years old Clinical indication: Dizziness and giddiness; Additional info: Vertigo x 1 day, evaluate for vascular injuries TECHNIQUE: Imaging protocol: Computed tomography angiography of the head with contrast. Exam focused on the arteries. 3D rendering (Not supervised by radiologist): MIP and/or 3D reconstructed images were created by the technologist. Radiation optimization: All CT scans at this facility use at least one of these dose optimization techniques: automated exposure control; mA and/or kV adjustment per patient size (includes targeted exams where dose is matched to clinical indication); or iterative reconstruction. Contrast material: OMNI 350; Contrast volume: 95 ml; Contrast route: INTRAVENOUS (IV); COMPARISON: CT head wo con* [id number] 07/25/2020 5:49 AM RADIATION DOSE METRICS: Total DLP (mGy-cm): 2270 FINDINGS: ANTERIOR CIRCULATION: Right internal carotid artery: There is marked atherosclerotic disease with focal high-grade stenosis and near occlusion in the distal cavernous portion of the right internal carotid artery. See axial series 3, image 107 and sagittal series 602, image 58. Right middle cerebral artery: Unremarkable. No occlusion or significant stenosis. No aneurysm. Right anterior cerebral artery: Unremarkable. No occlusion or significant stenosis. No aneurysm. Left internal carotid artery: There is moderate atherosclerotic disease with less than 50% stenosis in the cavernous portion of the left internal carotid artery. Left middle cerebral artery: Unremarkable. No occlusion or significant stenosis. No aneurysm. Left anterior cerebral artery: Unremarkable. No occlusion or significant stenosis. No aneurysm. POSTERIOR CIRCULATION: Right vertebral artery: Unremarkable. No occlusion or significant stenosis. No aneurysm. Left vertebral artery: Unremarkable. No occlusion or significant stenosis. No aneurysm. Basilar artery: Unremarkable. No occlusion or significant stenosis. No aneurysm. Right posterior cerebral artery: Unremarkable. No occlusion or significant stenosis. No aneurysm. Left posterior cerebral artery: Unremarkable. No occlusion or significant stenosis. No aneurysm. Veins: Dural venous sinuses are patent. The left transverse and sigmoid sinus are hypoplastic. Brain: No definite mass, mass effect, or midline shift. Cerebral ventricles: No ventriculomegaly. Bones/joints: Unremarkable. No acute fracture. Soft tissues: Unremarkable. IMPRESSION: 1. 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 2. Atherosclerotic disease with less than 50% stenosis in the of the cavernous portion of the left internal carotid artery. PROCEDURE INFORMATION: Exam: CT Angiography Neck With Contrast Exam date and time: 10/18/2020 8:44 PM Age: 65 years old Clinical indication: Dizziness and giddiness; Additional info: Vertigo x 1 day, evaluate for vascular injuries TECHNIQUE: Imaging protocol: Computed tomography angiography of the neck with contrast. 3D rendering (Not supervised by radiologist): MIP and/or 3D reconstructed images were created by the technologist. Radiation optimization: All CT scans at this facility use at least one of these dose optimization techniques: automated exposure control; mA and/or kV adjustment per patient size (includes targeted exams where dose is matched to clinical indication); or iterative reconstruction. Contrast material: OMNI 350; Contrast volume: 95 ml; Contrast route: INTRAVENOUS (IV); COMPARISON: CT head wo con* [id number] 07/25/2020 5:49 AM RADIATION DOSE METRICS: Total DLP (mGy-cm): 2270 FINDINGS: Right common carotid artery: No stenosis. No dissection or occlusion. Right internal carotid artery: There is mild atherosclerotic disease at the origin of the right internal carotid artery with less than 50% stenosis. Right external carotid artery: No occlusion or stenosis of the origin. Left common carotid artery: No stenosis. No dissection or occlusion. Left internal carotid artery: There is mild atherosclerotic disease at the origin of the left internal carotid artery with less than 50% stenosis. Left external carotid artery: No occlusion or stenosis of the origin. Right vertebral artery: No stenosis. No dissection or occlusion. Left vertebral artery: No stenosis. No dissection or occlusion. Soft tissues: Soft tissues in the neck and thoracic inlet are unremarkable. Bones/joints: No acute fracture. Multilevel disc findings: There is moderate degenerative disc disease in the cervical spine. Lungs: Lung apices are clear. CT/CT angio headneck* [id number] IMPRESSION: No significant arterial stenosis. No occlusion or dissection. REFERENCES: NASCET CRITERIA. The degree of internal carotid artery stenosis is based on NASCET criteria. Normal is no stenosis. Mild is less than 50% stenosis. Moderate is 50-69% stenosis. Severe is 70% to 99% stenosis. Total occlusion is no detectable patent lumen. Radiation Dose CTDIVOL = (mGy): DLP = 2270~2270 (mGy-cm) Dictated By:Bari Kiser MDSigned By:Bari Kiser MDSigned Date/Time:10/18/202204DD/ [address] [id number] Scan ReportSigned Patient: Melinda Meng #: [id number]: 1955cct#:[id number]/Sex: 65 / MADM Date: 10/18/20Loc: ERRoom/Bed:Attending Dr: Ordering Provider/Ordering MD: Dawn Atkins MD Date of Service: 10/18/20 Procedure(s): CT head wo con* [id number] Accession Number(s): [id number] Report Number: [id number] PROCEDURE INFORMATION: Exam: CT Head Without Contrast Exam date and time: 10/18/2020 8:44 PM Age: 65 years old Clinical indication: Pain; Dizziness; Headache; Additional info: Vertigo, rule out mass TECHNIQUE: Imaging protocol: Computed tomography of the head without contrast. Radiation optimization: All CT scans at this facility use at least one of these dose optimization techniques: automated exposure control; mA and/or kV adjustment per patient size (includes targeted exams where dose is matched to clinical indication); or iterative reconstruction. COMPARISON: CT head wo con* [id number] 07/25/2020 5:49 AM RADIATION DOSE METRICS: Total DLP (mGy-cm): 938.5 FINDINGS: Brain: There is mild diffuse cerebral atrophy. There is no acute intracranial hemorrhage. Cerebral ventricles: There is no significant ventricular dilation. The basal cisterns are unremarkable. Paranasal sinuses: The paranasal sinuses are clear. Mastoid air cells: The mastoid air cells are clear. Bones/joints: There is a chronic fracture of the right medial orbital wall. The calvarium is intact. Soft tissues: The visible extracranial soft tissues are unremarkable. CT/CT head wo con* [id number] IMPRESSION: No acute intracranial abnormality. Radiation Dose CTDIVOL = (mGy): DLP = 938.5 (mGy-cm) Dictated By:Bari Kiserigned By:Bari Kiser Discharge Plan Discharge Patient Disposition: Admitted As Inpatient Admit Provider: Yvonne Parra Coding Level of Care Code ED Informatics Spec for Lilia Farmer
[2020-10-18] MEDS: clopidogrel 75 mg Tablet PO (23:42)
[2020-10-18] MEDS: aspirin 325 mg Tablet PO (23:42)
[2020-10-19] VITALS (13 sets, daily range): BP systolic 131–162; BP diastolic 73–100; PULSE 50–61; RESP 16–18; TEMP 36.5–37; O2SAT 97–99; BMI 25.9
--- NOTE | 2020-10-19 00:38 | PC.NURSE ---
report called to Sandy CROWE
--- NOTE | 2020-10-19 01:05 | PC.NURSE ---
i reported low pluse 54 to nurse
--- NOTE | 2020-10-19 01:48 | MR_ITS ---
WS: [id number] MRI HEAD WITHOUT CONTRAST TECHNIQUE: Sagittal T1, T2 axial, T2 axial FLAIR, axial and coronal T1 images, axial susceptibility w eighted imaging, axial diffusion weighted images, and coronal T2 images were obtained. CLINICAL INFORMATION: evalute posterior circulation stroke COMPARISON: CT October 18, 2020 FINDINGS: No evidence of restricted diffusion to suggest acute ischemia. Ventricular system and basal cisterns are patent. Mild small vessel changes. Moderate parenchymal volume loss. Incidental cava septum pellu cidum and vergae. Normal posterior fossa. Normal vascular flow voids at the skull base. No extra-axia l fluid collections. No evidence of mass or mass effect. Mild mucosal thickening in the paranasal sin uses. A few retention cysts. Mastoid air cells well aerated. No hemosiderin on susceptibly weighted images. Normal optic chiasm and pituitary infundibulum. Modera te symmetric atrophy temporal lobes and hippocampal formations. Normal cavernous sinuses and Meckel's cave. MR/MR head wo con* [id number] IMPRESSION: 1. No evidence of restricted diffusion to suggest acute ischemia. 2. Mild small vessel changes with moderate parenchymal volume loss. 3. Moderate symmetric atrophy temporal lobes and hippocampal formations. 4. No extra-axial fluid collections. 5. No hemosiderin on the susceptibly weighted images.
--- NOTE | 2020-10-19 01:51 | P.HP_ITS ---
Providers/Chief Complaint Admitting Physician: Yvonne Parra MD Chief Complaint: dizzy, headache History of Present Illness Amadeo Meng is a 65 year old male with PMH HTN, COVID 27 Jul 2020 presenting with c/o sudden onset dizziness that started 2 days ago. States he woke up at 2 AM two nights ago as he was drenched in sweat, nauseous, on opening eyes felt as if room was spinning. At the time his let arm felt numb for less than a minute and then was normal. No motor deficits. Presnted to ER today due to persisting dizziness. every time patient stands up he feels lightheaded and sweaty. Patient denies any other focal neurological deficit during the episodes of vertigo. he has had some ringing in his ears the past week. CTA of the head and neck showed significant right ICA occlusion. Case was discussed by ERP with Dr. Arceo who recommended inpatient admission for MRI for further evaluation of vertigo-like symptoms as well as TIA work-up as right ICA occlusion does not explain patient's vertigo-like symptom. Received aspirin 325 mg and Plavix 75 mg thus far. Review of Systems General: Reports: 10 or more systems reviewed and unremarkable except in HPI and below Const: Denies: fever(s), chills or body aches Eyes: Denies: change in vision, blurry vision or photophobia ENMT: Reports: hoarseness; Denies: throat pain, enlarged tonsils, odynophagia or nasal congestion Card: Denies: chest pain, palpitations, irregular heart rhythm, edema, swelling of feet/ankles, lightheadedness, pre-syncope, dyspnea on exertion or orthopnea Resp: Denies: dyspnea, productive cough, non-productive cough, wheezing, stridor, pain on inspiration, change in phlegm color, hemoptysis or chest congestion GI: Denies: abdominal pain, nausea, vomiting, hematemesis, coffee ground e mesis, dysphagia, heartburn, diarrhea, constipation, GI cramping, change in stool character, hematochezia or melena : Denies: flank pain, dysuria, urinary frequency, urinary urgency, urinary hesitancy or hematuria Musc: Denies: neck pain, back pain, extremity pain, joint swelling, joint warmth or deformity Neuro: Denies: headache(s), numbness in extremities, weakness in extremities, sensory changes, difficulty walking, frequent falls, dizziness, vertigo, behavioral changes, Slurred speech present or seizure-like activity Psych: Denies: anxiety, depression, suicidal ideation or homicidal ideation Endo: Denies: polyuria, polydipsia, tired all the time, cold intolerance or hot flashes Chucky/Lymph: Denies: easy bruising or easy bleeding Medications/Allergies Home Medications Medication Instructions Recorded Confirmed Last Taken Type ibuprofen 200 mg PO Q6H PRN 10/18/20 10/18/20 Unknown History lisinopril-hydrochlorothiazide 1 tab PO DAILY 10/18/20 10/18/20 Unknown History vihiupit-urf-LR-lycopen-lutein 1 tab PO DAILY 10/18/20 10/18/20 10/18/20 History [Centrum Silver Ultra Men's] Allergies Allergy/AdvReac Type Severity Reaction Status Date / Time Penicillins Allergy ADR/ALGY-Pa Verified 10/18/20 13:47 lpitations PFSH Acute PFSH: Medical History (Updated 10/19/20 @ 02:04 by Yvonne Parra MD) COVID-27 Jul 2020 Lung nodule Surgical abdomen Surgical History (Updated 10/19/20 @ 02:03 by Yvonne Parra MD) H/O wrist surgery Family History Mother Cancer Father Cancer Hypertension Denies family history of Diabetes CAD (coronary artery disease) Hyperlipidemia Psychiatric illness Suicide Lung disease Stroke Social History Smoking and tobacco status: former smoker Alcohol intake: never Vitals/I&O/Wt Last Vital Signs Temp 98.0 F 10/19/20 01:04 Pulse 54 L 10/19/20 01:04 Resp 18 10/19/20 01:04 BP 140/75 10/19/20 01:04 Pulse Ox 98 10/19/20 01:04 10/18/20 10/18/20 10/19/20 14:59 22:59 06:59 Intake Total 500 / 500 Balance 500 / 500 Weight last 48 hrs Weight 79.832 kg Weight 79.832 kg Physical Exam Narrative: EXAM NARRATIVE: General: No acute distress, AO x3 HEENT: PERRLA, pupils bilaterally equal and reactive, pallors not present Chest: Normal vesicular breath sounds, no added sounds, equal good air entry bilaterally CVS: S1-S2 regular, no murmurs, no tachycardia, no gallops, no rubs Abdomen: Soft, nontender, no organomegaly, bowel sounds present Neuro: No focal deficits, no facial deformity, AO x3, power 5/5 in all limbs Extremities: no clubbing edema or LAD Data : 10/18/20 20:52 10/18/20 20:52 Attestation for Other Data: I personally reviewed and interpreted the following: Other data: Laboratory Results WBC 6.0 10^3/uL (4.0-10.0) 10/18/20 20:52 RBC 5.15 10^6/uL (4.1-5.3) 10/18/20 20:52 Hgb 14.8 g/dL (11.7-16.6) 10/18/20 20:52 Hct 46.5 % (42.0-52.0) 10/18/20 20:52 MCV 90.3 fL (80-94) 10/18/20 20:52 MCH 28.7 pg (28.0-34.0) 10/18/20 20:52 MCHC 31.8 g/dL (30.0-36.0) 10/18/20 20:52 RDW 13.8 % (12.1-15.1) 10/18/20 20:52 Plt Count 199 10^3/cmm (130-400) 10/18/20 20:52 MPV 8.8 fL (7.4-10.4) 10/18/20 20:52 Neut % (Auto) 49.0 % 10/18/20 20:52 Lymph % (Auto) 40.1 % 10/18/20 20:52 Burnet % (Auto) 7.5 % 10/18/20 20:52 Eos % (Auto) 2.5 % 10/18/20 20:52 Baso % (Auto) 0.7 % 10/18/20 20:52 Neut # (Auto) 2.97 10^3/uL (1.8-7.7) 10/18/20 20:52 Lymph # (Auto) 2.4 10^3/uL (0.8-4.8) 10/18/20 20:52 Burnet # (Auto) 0.5 10^3/uL (0.2-0.9) 10/18/20 20:52 Eos # (Auto) 0.2 10^3/uL (0.0-0.8) 10/18/20 20:52 Baso # (Auto) 0.0 10^3/uL (0.0-0.1) 10/18/20 20:52 Nucleated RBC % (auto) 0 % 10/18/20 20:52 Nucleated RBCs # 0.0 /100WBC 10/18/20 20:52 PT 13.10 SECONDS (12.1-14.9) 10/18/20 20:52 INR 0.96 (0.8-1.2) 10/18/20 20:52 APTT 33.6 SECONDS (23.9-36.7) 10/18/20 20:52 Sodium 139 mmol/L (136-145) 10/18/20 20:52 Potassium 3.7 mmol/L (3.5-5.1) 10/18/20 20:52 Chloride 102 mmol/L (98-107) 10/18/20 20:52 Carbon Dioxide 28 mmol/L (22-29) 10/18/20 20:52 Anion Gap 12.7 (5-19) 10/18/20 20:52 BUN 7 mg/dL (8-23) L 10/18/20 20:52 Creatinine 0.5 mg/dL (0.7-1.2) L 10/18/20 20:52 GFR Calculation 165.9 mL/min (90-130) H 10/18/20 20:52 Glucose 110 mg/dL (65-115) 10/18/20 20:52 Calculated Osmolality 287 mOsm/kg (285-295) 10/18/20 20:52 Calcium 9.2 mg/dL (8.5-10.5) 10/18/20 20:52 Troponin T Gen 5 ng/L 6 ng/L (0-15) 10/18/20 20:52 Troponin T 120 Minute 6.00 ng/L (0-15) 10/18/20 23:01 Delta Troponin T Not Reportable 10/18/20 23:[address] 10/18/20 20:44 IMPRESSION: No acute intracranial abnormality. Radiation Dose CTDIVOL = (mGy): DLP = 938.5 (mGy-cm) Head/Neck CTA 10/18/20 20:44 IMPRESSION: 1. 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 2. Atherosclerotic disease with less than 50% stenosis in the of the cavernous portion of the left internal carotid artery. IMPRESSION: No significant arterial stenosis. No occlusion or dissection. REFERENCES: NASCET CRITERIA. The degree of internal carotid artery stenosis is based on NASCET criteria. Normal is no stenosis. Mild is less than 50% stenosis. Moderate is 50-69% stenosis. Severe is 70% to 99% stenosis. Total occlusion is no detectable patent lumen. Radiation Dose CTDIVOL = (mGy): DLP = 2270~2270 (mGy-cm) A&P Assessment and plan (1) Dizziness: Status: Acute (2) Carotid stenosis: Status: Acute (3) TIA (transient ischemic attack): Status: Acute Additional A&P Information Peristent dizziness Concern for posterior circulation stroke - start Plavix 75mg po daily, atorvastatin 40mg po daily MRI brain in am to evaluate posterior circulation Check orthostatics telemetry monitoring TIA w/up incl echocardiogram Differential includes post viral labyrymthtits- add mecline 25mg TID PRN Attestations Medical Necessity Statement*: observation admission for above care Coding Level of Care Code Acute Club Car Attendant for Lilia Farmer Diagnoses Dizziness R42 Carotid stenosis I65.29 TIA (transient ischemic attack) G45.9
--- NOTE | 2020-10-19 02:07 | USCV_ITS ---
Amadeo Meng Age: 65 Gender: M : 1955 Exam Date: 10/19/2020 05:39 Ordering Phys: Yvonne Parra MD Technologist: Sammie Oshea [place] [facility] [place]: CVA TIA BP: 151 / 81 HR: 51 Rhythm: Sinus Technical Quality: Adequate MEASUREMENTS (Male / Female) Normal Values 2D ECHO LV Diastolic Diameter PLAX 4.9 cm 4.2 - 5.9 / 3.9 - 5.3 cm LV Systolic Diameter PLAX 4.0 cm LV Chamber Size 5.0 cm IVS Diastolic Thickness 1.1 cm 0.6 - 1.0 / 0.6 - 0.9 cm IVS Systolic Thickness 1.1 cm LVPW Diastolic Thickness 1.3 cm 0.6 - 1.0 / 0.6 - 0.9 cm LVPW Systolic Thickness 1.8 cm RV Chamber Size 3.2 cm LVOT Diameter 2.0 cm LV Ejection Fraction 2D Teich 39.0 % LV Ejection Fraction MOD 2C 69.0 % LV Ejection Fraction 2C AL 68.0 % LA Diameter 4.5 cm LA Width 4.4 cm LA Height 4.8 cm RA Width 4.0 cm RA Height 5.2 cm Aorta at Sinotubular Diameter 3.3 cm M-MODE LV Diastolic Diameter MM 5.9 cm 4.2 - 5.9 / 3.9 - 5.3 cm LV Systolic Diameter MM 4.0 cm LV Ejection Fraction MM Teich 59.3 % IVS Diastolic Thickness MM 1.0 cm 0.6 - 1.0 / 0.6 - 0.9 cm IVS Systolic Thickness MM 1.3 cm LVPW Diastolic Thickness MM 1.0 cm 0.6 - 1.0 / 0.6 - 0.9 cm LVPW Systolic Thickness MM 1.6 cm RV Diastolic Diameter MM 1.4 cm Aortic Annulus Diameter 3.4 cm LA Ao Ratio MM 1.6 MV E Point Septal Separation 0.3 cm DOPPLER AV Peak Velocity 175.0 cm/s LVOT Peak Velocity 63.0 cm/s AV Area Cont Eq vti 1.6 cm squared AV Area Cont Eq pk 1.2 cm squared MV Area PHT 3.1 cm squared Mitral E to A Ratio 0.9 MV E' Velocity 43.5 cm/s Mitral E to MV E' Ratio 7.0 Mitral E to LV E' Lateral Ratio 5.6 Mitral E to LV E' Septal Ratio 9.6 TR Peak Velocity 136.3 cm/s TR Peak Gradient 7.4 mmHg TR Mean Velocity 84.6 cm/s TR Mean Gradient 3.8 mmHg TR Velocity Time Integral 29.0 cm TV Peak E Velocity 63.0 cm/s Right Atrial Pressure 3.0 mmHg Pulmonary Artery Systolic Pressu 10.4 mmHg PV Peak Velocity 61.0 cm/s RV Acceleration Time 0.1 s RV Ejection Time 0.4 s RV AcT/ET 0.3 FINDINGS Left Ventricle Normal left ventricular cavity size. Normal left ventricular systolic function. Left ventricular ejection fraction is estimated at 60 %. Grade I/IV diastolic dysfunction (abnormal relaxation filling pattern), normal to mildly elevated filling pressures. Right Ventricle The right ventricle is normal in size and function. Right Atrium The right atrium is normal in size. Left Atrium The left atrium is normal in size. Mitral Valve Moderately thickened mitral valve, cannot rule out vegetation. No mitral valve stenosis. Severe mitral valve regurgitation. Further exploration transesophageal echocardiogram advised if high clinical suspicion for endocarditis Aortic Valve Moderate aortic valve calcification. Moderate aortic valve stenosis, mean gradient 5.9 mmHg, RUFINO 1.6 cm squared. Trace aortic valve regurgitation. Tricuspid Valve Mild tricuspid valve regurgitation. Pulmonic Valve Structurally normal pulmonic valve without significant stenosis. There is no pulmonic regurgitation. Pericardium Normal pericardium without effusion. Aorta Normal ascending aorta dimension. CONCLUSIONS 1-Normal left ventricular cavity size. Normal left ventricular systolic function. Left ventricular ejection fraction is estimated at 60 %. Grade I/IV diastolic dysfunction (abnormal relaxation filling pattern), normal to mildly elevated filling pressures. 2-Moderately thickened mitral valve, cannot rule out vegetation. No mitral valve stenosis. Severe mitral valve regurgitation. Further exploration transesophageal echocardiogram advised if high clinical suspicion for endocarditis. 3-Moderate aortic valve calcification. Moderate aortic valve stenosis, mean gradient 5.9 mmHg, RUFINO 1.6 cm squared. Trace aortic valve regurgitation. 4-There is no pericardial effusion. 5-Pulmonary artery systolic pressure is within normal limits. 6-Right atrial pressure is around 5 mm of mercury. 7-There are no prior echocardiogram studies to compare. Aby Walters MD (Electronically Signed) Final Date: 19 October 2020 18:26 S
--- NOTE | 2020-10-19 03:36 | PC.NURSE ---
Admit Note Patient admitted to [250-2] from [ER] via [gurney]. Covering service notified. Patient presents with [TIA and R total occlusion of the carotid artery]. Orders reviewed & will continue to monitor. Patient and/or marketing sales representative oriented to environment, equipment, and informed of the following as found in the admission booklet: patient rights & responsibilities, visitor policy, hand and respiratory hygiene practice. Other education includes: [MRI, oxygen protocol and policy, and telemetry]. Patient and/or marketing sales representative [verbalized understanding].
--- NOTE | 2020-10-19 04:14 | PC.NURSE ---
i report low pluse 54 to nurse
--- NOTE | 2020-10-19 05:13 | PC.NURSE ---
Shift Note Frequent safety and comfort rounds continue. Orders and/or nursing care completed as indicated. Patient monitored for response to intervention and treatment(s). Education provided includes[MRI paperwork, oxygen safety, fall prevention, and bathroom privileges ]. Patient and/or development representative verbalized understanding.
[2020-10-19 05:22] LABS: Chol HDL Ratio 3.26 mg/dL (1.0-5.00); Cholesterol 153 mg/dL (0-200); HDL Cholesterol 47 mg/dL (60-100); LDL Cholesterol Calculated 91 mg/dL (50-129); LDL HDL Ratio 1.94 RATIO (0.00-3.22); Triglycerides 77 mg/dL (0-150)
[2020-10-19] MEDS: pantoprazole DR 40 mg Tablet PO (08:27)
[2020-10-19] MEDS: clopidogrel 75 mg Tablet PO (08:29)
--- NOTE | 2020-10-19 11:40 | PC.CHAP ---
Pastoral Care Encounter/Spiritual Assessment Type of Contact [] Declined materials scientist visit [] Patient/Family/Request visit [] Outpatient visit [] Follow-up visit [] Physician referral [] Code/Alert [x] Routine visit [] Staff referral [] Actively dying [] Patient sleeping [] Family support [] [] Out of room [] Palliative care [] [] Receiving care in room [] Pre-surgical visit [] Trauma [] Long length of stay [] ICU visit [] Other: Relational/Emotional Strength [x] Patient feels connected with others/family/visitors/staff [] Distress [] Loneliness/isolation [] Abandonment Spirituality of Patient [x] Person of Juliane [x] Attends Cheondoism of their Juliane [x] Believes in Prayer [] Reads Bible or Alevism materials [] There are Spiritual issues to be addressed 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 Interventions [x] Prayer [x] Active listening [x] Non-anxious presence [x] Spiritual/emotional support [] Crisis/trauma care [x] Spiritual counseling [] Bereavement support [] Provided bereavement packet [] Provided Bible/devotional materials [] Provided toy/stuffed animal, coloring book to patient or family member [] Provided Communion [] Anointing/Grady [] Salvation [] Completed spiritual assessment [] Other: Impact on Illness or Injury [] Angry [] Fearful [] Anxious [] Often cries [] Exhaustion [] Unable to work [] Unable to attend church [] Unable to walk/stand [] Unable to read [] Unable to drive [] Unable to eat/drink [] Unable to sleep [] Unable to be with family [] Patient intubated [] Other: Summary Time spent with patient 15 min
--- NOTE | 2020-10-19 12:22 | PC.NURSE ---
patient left with EMS to go to MRI
--- NOTE | 2020-10-19 20:44 | PM.DCS ---
Discharge Providers Date of Admission: 10/19/20 00:35 Date of Discharge: October 19, 2020 Attending Provider at Admission: Yvonne Parra MD Attending Provider at Discharge: Carie Zaman Diagnoses at Discharge Discharge Diagnosis (1) Dizziness: Status: Resolved (2) Carotid stenosis: Status: Acute (3) TIA (transient ischemic attack): Status: Acute Reason for Visit Reason for Visit: dizzy, headache Hospital Course Hospital Course 65 year old male with PMH HTN, COVID 27 Jul 2020 presenting with c/o sudden onset dizziness that started 2 days ago. States he woke up at 2 AM two nights ago as he was drenched in sweat, nauseous, on opening eyes felt as if room was spinning. At the time his let arm felt numb for less than a minute and then was normal. No motor deficits. Presnted to ER today due to persisting dizziness. every time patient stands up he feels lightheaded and sweaty. Patient denies any other focal neurological deficit during the episodes of vertigo. he has had some ringing in his ears the past week. CTA of the head and neck showed significant right ICA occlusion. Case was discussed by ERP with Dr. Arceo who recommended inpatient admission for MRI for further evaluation of vertigo-like symptoms as well as TIA work-up as right ICA occlusion does not explain patient's vertigo-like symptom. Received aspirin 325 mg and Plavix 75 mg thus far. Upon admission to hospital Patients symptoms had resolved. MRI was performed which did not show any evidence of acute ischemia. Patient was however noted to have bradycardia. He wanted to be discharged. Advised to remain until echocardiogram however did not do so. Cardiac event monitor was ordered at the time of discharge. Address return to hospital if any recurrence of symptoms. Physical Exam Narrative: EXAM NARRATIVE: General: No acute distress, AO x3 HEENT: PERRLA, pupils bilaterally equal and reactive, pallors not present Chest: Normal vesicular breath sounds, no added sounds, equal good air entry bilaterally CVS: S1-S2 regular, no murmurs, no tachycardia, no gallops, no rubs Abdomen: Soft, nontender, no organomegaly, bowel sounds present Neuro: No focal deficits, no facial deformity, AO x3, power 5/5 in all limbs Extremities: no clubbing edema or LAD Discharge Data Data Completed and Pending: Completed Studies During Hospitalization Category Date Time Status CT angio headneck * 12728/92436 Urge nt Cat Scan 10/18/20 20:[address] head wo con* 7 0450 Urgent Cat Scan 10/18/20 20:44 Completed MR head wo con* 7 0551 Routine MRI 10/19/20 01:48 Completed CV. echo complete * 85057 Routine Ultrasound 10/19/20 02:07 Completed Vitals: Last Vital Signs Temp 97.7 F 10/19/20 12:33 Pulse 50 L 10/19/20 16:41 Resp 16 10/19/20 12:33 BP 131/85 10/19/20 12:33 Pulse Ox 97 10/19/20 12:33 Discharge Plan Discharge Patient Disposition: Home Condition: Stable Prescriptions: New aspirin 81 mg tablet,chewable 81 mg PO DAILY Qty: 30 RF: 0 Continued lisinopril-hydrochlorothiazide 10-12.5 mg Tablet 1 tab PO DAILY RF: 0 Centrum Silver Ultra Men's 300-600-300 mcg Tablet 1 tab PO DAILY RF: 0 Discontinued ibuprofen 200 mg Tablet 200 mg PO Q6H PRN (Reason: Pain) RF: 0 Discharge Orders: Discharge Order (Routine); Ordered 10/19/20 Ordered By: Carie Zaman Other Ambulatory Orders: CA cardiac event monitor (Routine) Timeframe: 1 Day Facility: [facility] - Location: Cardiac Diagnostic Laboratory Ordered By: Carie Zaman Referrals: Aby Walters MD [Physician] - 10/24/20 9:30 am Discharge Diet: Cardiac Discharge Activity: Increase activity as tolerated Patient Instructions: Dizziness, Aspirin (By mouth), Opioid Safety, Stroke Stoplight Activity Restrictions/Additional Instructions: Return to hospital if any recurrence of dizziness. Discharge Attestations Time Spent in Discharge Care*: greater than 30 min Specific Discharge Activities: educating patient, discussing with pcp/other providers, discussing with disease case manager rn/social workers/dc planners, documenting/other paperwork and evaluating patient/reviewing data Status at Discharge: Cognitive status at discharge: cognitively intact, Behavioral status at discharge: cooperative, Functional status at discharge: independent ambulation Overall status at discharge: patient is back to baseline Quality Metrics Clinical Quality Measures During this hospital stay, did patient experience: None Coding Level of Care Code Acute Chg FW DC note Diagnoses Dizziness R42 Carotid stenosis I65.29 TIA (transient ischemic attack) G45.9
--- NOTE | 2020-10-24 12:20 | PC.SOCIAL ---
follow up discharge call made to patient. Patient has follow up appointment tomorrow with cardiology, unsure who he is seeing. was scheduled to see Dr. Walters today but went and Dr. Walters is out until November, so he will see someone tomorrow. Patient asked about taking aspirin 81 mg daily, he has been taking q 6 hours. Redirected patient on taking once daily.
== END 2020-10-19 16:19 | disposition home or self-care (01) ==
LOC: ER 22:01 → MEDSURG 10-19 01:18
PROVIDERS: Admitting Provider Student in an Organized Health Care Education/Training Program; Emergency Provider Emergency Medicine; Visit Provider Hospitalist
DX: G45.9 Transient cerebral ischemic attack, unspecified (principal); R42 Dizziness and giddiness; I65.29 Occlusion and stenosis of unspecified carotid artery; Z86.16 Personal history of COVID-19; Z83.3 Family history of diabetes mellitus; Z82.49 Family history of ischemic heart disease and other diseases of the circulatory system; Z87.891 Personal history of nicotine dependence
CPT/HCPCS: 36415; 70450; 70496; 70498; 70551; 80048; 80061; 84484; 85025; 85610; 85730; 86850; 86900; 93005; 93306; 96360; 99285; G0378; J7040; J8597; Q9967

== ENCOUNTER → 2021-01-10 10:13 | Outpatient (BNVA) | payer OTHER, SELFPAY | PROVIDERS: PCP Family Medicine; Referring Provider Internal Medicine; Visit Provider Internal Medicine | DX: I34.0 Nonrheumatic mitral (valve) insufficiency (principal); Z20.822 Contact with and (suspected) exposure to COVID-19 | CPT/HCPCS: 87635 ==

== ENCOUNTER 2021-01-16 09:49 | Day surgery (SDC) | payer OTHER, SELFPAY ==
[2021-01-12 14:56] VITALS: BMI 26.9
--- NOTE | 2021-01-16 10:06 | ANES.PREANE2 ---
Pre-Anesthetic Assessment Pre-Anesthetic Assessment: Height/Weight: Height 1.75 m Weight 82.554 kg Preop Diagnosis: bradycardia Proposed Procedure: Operation Date: 12/30/20 12:00 Proposed Procedures p JUDIE(Not Applicable) - Ziggy Ramon M.D Operation Date: 01/16/21 12:00 Proposed Procedures p JUDIE(Not Applicable) - Ziggy Ramon M.D Familial anesthetic complications: none Was Beta Tres taken within 24 hours: N/A Was Clonidine taken within 24 hours: N/A Last intake: > 8 hrs Social: Social History: No alcohol and No tobacco Exam: Pre-Anes Outpt Exam: alert, oriented x 3, clear to auscultation bilaterally and regular rate & rhythm Airway: MP: 3 Dentition: False (top) Pulmonary: Comments: hx aspiration pneumonia - in july CV/HEM: CV/HEM: Arrythmia Comments: achieves 4 METS w/ out KENNEDY or chest pain CONCLUSIONS 1-Normal left ventricular cavity size. Normal left ventricular systolic function. Left ventricular ejection fraction is estimated at 60 %. Grade I/IV diastolic dysfunction (abnormal relaxation filling pattern), normal to mildly elevated filling pressures. 2-Moderately thickened mitral valve, cannot rule out vegetation. No mitral valve stenosis. Severe mitral valve regurgitation. Further exploration transesophageal echocardiogram advised if high clinical suspicion for endocarditis. 3-Moderate aortic valve calcification. Moderate aortic valve stenosis, mean gradient 5.9 mmHg, RUFINO 1.6 cm squared. Trace aortic valve regurgitation. 4-There is no pericardial effusion. 5-Pulmonary artery systolic pressure is within normal limits. 6-Right atrial pressure is around 5 mm of mercury. 7-There are no prior echocardiogram studies to compare. Neuropsych: Neuropsych: TIA (denies knowledge of mini-stroke) Anesthetic Plan: ASA status: 3 Anesthesia: MAC Risk of > 500 ml blood loss (7ml/kg in children): No PFSH Anesthesia PFSH: Medical History COVID-27 Jul 2020 Lung nodule Surgical abdomen Surgical History H/O wrist surgery Family History Mother Cancer Father Cancer Hypertension Denies family history of Diabetes CAD (coronary artery disease) Hyperlipidemia Psychiatric illness Suicide Lung disease Stroke Social History Smoking and tobacco status: former smoker Quit status (tobacco): has quit using tobacco Year quit tobacco: 30 years ago 1/2 pack Alcohol intake: former Data Anesthesia Cardiac Studies: Echocardiogram 10/19/20
--- NOTE | 2021-01-16 10:23 | USCV_ITS ---
Amadeo Meng Age: 65 Gender: M : 1955 Exam Date: 01/16/2021 12:22 Ordering Phys: Ziggy Ramon M.D ([email or web address]) Technologist: [place] [facility] [place]: [place] BP: / HR: Rhythm: Sinus Technical Quality: Adequate MEASUREMENTS (Male / Female) Normal Values Medications Complications Proc. Components FINDINGS Left Ventricle Left ventricle is normal in size. Normal LV systolic function with EF of 55-60% Right Ventricle RV is normal in size and function Right Atrium Left Atrium Grossly normal in size LA Appendage No IZABELLA thrombus noted IA Septum Mitral Valve Structurally normal valve. Subvalvular apparatus is intact. Moderate mitral regurgitation is noted Aortic Valve Normal. Tricuspid Valve Normal Pulmonic Valve Normal Pericardium Normal Aorta Mild atherosclerotic plaque seen CONCLUSIONS LV systolic function is normal Moderate mitral regurgitation. Structurally normal mitral valve. No comparison JUDIE study available Ziggy Ramon MD (Electronically Signed) Final Date: 22 January 2021 21:47 S
[2021-01-16 10:27] VITALS: BP 131/68; PULSE 62; RESP 18; TEMP 36.4; O2SAT 99
[2021-01-16] MEDS: sodium chloride 0.9% 1,000 ML 30 ML IV (11:03)
--- NOTE | 2021-01-16 12:06 | W.PM.OPSUD ---
Surgery/Procedure H&P Update DATE OF PROCEDURE: January 16, 2021 DATE H&P PERFORMED: 12/26/20 H&P UPDATE INFORMATION: I have reviewed H&P completed within last 30 days, I have examined patient prior to procedure and No changes to prior documentation PREOP DIAGNOSIS: Mitral regurgitation PRIMARY INDICATION FOR PROCEDURE: Mitral regurgitation PLANNED PROCEDURE: Operation Date: 01/16/21 12:00 Proposed Procedures p JUDIE(Not Applicable) - Ziggy Ramon M.D PATIENT REASSESSED PRIOR TO SEDATION, WITH NO CHANGE NOTED: Yes PHYSICAL EXAM: alert, oriented x 3, clear to auscultation bilaterally and regular rate & rhythm
[2021-01-16 12:45] VITALS: BP 111/72; PULSE 74; RESP 16; TEMP 36.6; O2SAT 97
[2021-01-16 12:56] VITALS: BP 119/74; PULSE 72; RESP 16; O2SAT 97
[2021-01-16 13:10] VITALS: BP 129/92; PULSE 74; RESP 16; O2SAT 98
--- NOTE | 2021-01-16 13:44 | ANE.PACU2 ---
Inpatient post-anesthesia follow up: Airway intact: Yes Vital signs: Temperature 97.9 F Pulse Rate 74 Respiratory Rate 16 Blood Pressure 129/92 Pulse Oximetry 98 Oxygen Delivery Me thod Room Air Oxygen Flow Rate Fraction of Inspir ed Oxygen Hydration adequate: Yes Nausea and vomiting: No Pain level: 2 Mental status: Baseline
== END 2021-01-16 13:15 | disposition home or self-care (01) ==
PROVIDERS: PCP Family Medicine; Visit Provider Internal Medicine
PROC: (CPT 93312; principal; 2021-01-16 12:00)
DX: I34.0 Nonrheumatic mitral (valve) insufficiency (principal); I65.23 Occlusion and stenosis of bilateral carotid arteries; R00.1 Bradycardia, unspecified; Z79.82 Long term (current) use of aspirin; Z79.02 Long term (current) use of antithrombotics/antiplatelets; Z87.891 Personal history of nicotine dependence; Z86.16 Personal history of COVID-19
CPT/HCPCS: 93312; 93320; 93325; 96360; J7030

== ENCOUNTER 2021-10-11 11:21 | Emergency (ER) | payer OTHER, MEDICARE, SELFPAY ==
[2021-10-11 11:47] VITALS: BP 118/73; PULSE 54; RESP 18; TEMP 36.2; O2SAT 99; BMI 25.4
--- NOTE | 2021-10-11 12:43 | W.ED.HA ---
HPI - Headache General: Chief Complaint: Headache Stated Complaint: Head, neck, shoulder and eyes hurt Time Seen by Provider: 10/11/21 12:03 Source: patient and family Mode of arrival: ambulatory Limitations: no limitations History of Present Illness: Patient is a 66-year-old male who presents to ED today with a complaint of a headache. Patient states headache has been fairly intermittent over the past several days. He states he does have a history of headaches. This is not the worst headache of his life. He states he is also been having some blurry vision and some dizziness. He states he has had a longstanding history of intermittent dizziness over the past year and a half. Patient states he has been admitted to the hospital here at some point. He underwent CTA imaging as well as MRI imaging. 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 Shannon for. At that time Dr. Shannon had spoken to interventional radiology and they decided there was no intervention needed. She does not complain of any numbness, tingling, loss of sensation to his extremities. No facial sensation deficits, drooping, dysphagia, or slurred speech. Spite the dizziness patient is ambulatory without any form of assistance. MD elicited complaint: headache and other (dizziness) Pertinent past history: other (AGUILAR, vertigo) Onset (ago): day(s) Location: occipital and down into neck Associated symptoms: Deny chest pain, confusion, fever(s), lightheadedness, malaise, nausea, rash, syncope or vomiting Treatments prior to arrival: none Review of Systems Const: Denies: fever(s), chills, body aches, fatigue or malaise Eyes: Reports: blurry vision; Denies: change in vision, blind spots, photophobia, eye discomfort, eye discharge, floaters or seeing flashes Card: Denies: chest pain, palpitations, irregular heart rhythm, lightheadedness, syncope or dyspnea on exertion Resp: Denies: dyspnea, productive cough or pain on inspiration GI: Denies: abdominal pain, nausea, vomiting, heartburn or diarrhea : Denies: difficulty urinating or dysuria Musc: Denies: neck pain, back pain or joint pain Skin/Breast: Denies: rash Neuro: Reports: headache(s) and dizziness; Denies: numbness in extremities, weakness in extremities, sensory changes, lack of coordination, frequent falls, confusion, behavioral changes, Slurred speech present, difficulty communicating thoughts or seizure-like activity [facility] ED PFSH: Medical History COVID-27 Jul 2020 Lung nodule Surgical abdomen Surgical History H/O wrist surgery Family History Mother Cancer Father Cancer Hypertension Denies family history of Diabetes CAD (coronary artery disease) Hyperlipidemia Psychiatric illness Suicide Lung disease Stroke Social History Smoking and tobacco status: former smoker Quit status (tobacco): has quit using tobacco Year quit tobacco: 30 years ago 1/2 pack Alcohol intake: former Physical Exam Const: COMMON NORMALS: no acute distress, average body habitus, patient oriented x3, no limitations, healthy appearing, alert and well nourished GENERAL APPEARANCE: cooperative ORIENTATION/CONSCIOUSNESS: Yes awake, Yes oriented to person, Yes oriented to place and Yes oriented to time HENMT: COMMON NORMALS: normocephalic and atraumatic HEAD & SCALP: normal to inspection, normocephalic and atraumatic Eye: COMMON NORMALS: Equal, round and reactive pupils present, EOMs intact bilaterally, conjunctivae normal and normal visual bautista by confrontation GENERAL EYE: appearance normal, both eyes and all related structures and normal light reflex VISUAL BAUTISTA: No peripheral vision loss and No central vision loss ALIGNMENT: Yes alignment normal PERIORBITAL: periorbital findings normal EYELID: eyelids normal CONJUNCTIVA: Yes conjunctivae normal SCLERA: sclerae normal CORNEA: Yes corneas normal PUPIL: Yes Equal, round and reactive pupils present DIRECT OPHTHALMOSCOPY: Yes normal light reflex Neck/C-Spine: COMMON NORMALS: full ROM, no lymphadenopathy, supple and no meningeal signs Chest: COMMONS NORMALS: normal inspection of the chest Resp: COMMON NORMALS: normal respiratory effort and clear to auscultation bilaterally AUSCULTATION: clear to auscultation bilaterally Cardio: COMMON NORMALS: regular rate and regular rhythm RATE: regular rate RHYTHM: regular rhythm GI: COMMON NORMALS: Normal to inspection, nondistended, normoactive bowel sounds present, Soft to palpation, non-tender, No hepatosplenomegaly present and no masses PALPATION: Yes Soft to palpation and Yes No hepatosplenomegaly present : COMMON NORMALS: Yes no CVA tenderness BLADDER/KIDNEY EXAM: Yes no CVA tenderness Back/Pelvis: COMMON NORMALS: no CVA tenderness and thoracic and lumbar spine normal to inspection Extremity: COMMON NORMALS: normal to inspection GENERAL: Yes normal exam except as noted Neuro: ARABELLA COMA SCALE: document GCS findings Arabella coma scale eye opening: Spontaneous Arabella coma scale verbal response: Orientated Arabella coma scale motor response: Obey commands Bruno coma scale total score: 15 COMMON NORMALS: patient oriented x3, CN's II-XII intact bilaterally, moves all extremities, no focal motor deficits and no sensory deficits noted SENSORIUM/ORIENTATION: Yes alert, Yes oriented to person, Yes oriented to place and Yes oriented to time MENINGEAL SIGNS: Yes no meningeal signs SPEECH: speech normal MOTOR EXAM: 5/5 motor strength present throughout Skin: COMMON NORMALS: no rashes or lesions noted GENERAL SKIN EXAM: no rashes or lesions noted Course Vital Signs: Vital signs: Vital Signs Temperature 97.2 F L 10/11/21 13:05 Pulse Rate 55 L 10/11/21 14:11 Respiratory Rate 16 10/11/21 14:11 Blood Pressure 128/73 10/11/21 14:11 Pulse Oximetry 98 10/11/21 14:11 Oxygen Delivery Me thod 10/11/21 14:11 MDM - Headache Medical Decision Making CT head is negative. His vital signs are stable. Lab work is unremarkable. Patient was ambulatory without difficulty and without assistance here. He has no acute neurologic deficits on his physical exam. I have no suspicion at this time for an acute CVA/TIA. Spoke about possible neurology follow-up in regards to his headaches and intermittent dizziness however patient states [facility] Return to ED precautions given. Lab Data : 10/11/21 13:15 10/11/21 13:[address] 10/11/21 12:44 IMPRESSION: 1. No evidence of intracranial hemorrhage or mass effect. 2. Mild small vessel changes with mild parenchymal volume loss. 3. Intracranial vascular calcification. 4. No acute intracranial findings. Laboratory Results WBC 5.0 10^3/uL (4.0-10.0) 10/11/21 13:15 RBC 4.72 10^6/uL (4.1-5.3) 10/11/21 13:15 Hgb 14.3 g/dL (11.7-16.6) 10/11/21 13:15 Hct 43.1 % (42.0-52.0) 10/11/21 13:15 MCV 91.3 fl (80-94) 10/11/21 13:15 MCH 30.3 pg (28.0-34.0) 10/11/21 13:15 MCHC 33.2 g/dL (30.0-36.0) 10/11/21 13:15 RDW 12.9 % (12.1-15.1) 10/11/21 13:15 Plt Count 204 10^3/cmm (130-400) 10/11/21 13:15 MPV 8.5 fL (7.4-10.4) 10/11/21 13:15 Neut % (Auto) 50.6 % 10/11/21 13:15 Lymph % (Auto) 37.2 % 10/11/21 13:15 [place] % (Auto) 9.0 % 10/11/21 13:15 Eos % (Auto) 2.4 % 10/11/21 13:15 Baso % (Auto) 0.6 % 10/11/21 13:15 Neut # (Auto) 2.53 10^3/uL (1.8-7.7) 10/11/21 13:15 Lymph # (Auto) 1.9 10^3/uL (0.8-4.8) 10/11/21 13:15 [place] # (Auto) 0.5 10^3/uL (0.2-0.9) 10/11/21 13:15 Eos # (Auto) 0.1 10^3/uL (0.0-0.8) 10/11/21 13:15 Baso # (Auto) 0.0 10^3/uL (0.0-0.1) 10/11/21 13:15 Nucleated RBC % (auto) 0 % 10/11/21 13:15 Nucleated RBCs # 0.0 /100WBC 10/11/21 13:15 Sodium 133 mmol/L (136-145) L 10/11/21 13:15 Potassium 4.0 mmol/L (3.5-5.1) 10/11/21 13:15 Chloride 96 mmol/L (98-107) L 10/11/21 13:15 Carbon Dioxide 25 mmol/L (22-29) 10/11/21 13:15 Anion Gap 16.0 (5-19) 10/11/21 13:15 BUN 23 mg/dL (8-23) 10/11/21 13:15 Creatinine 0.9 mg/dL (0.7-1.2) 10/11/21 13:15 GFR Calculation 83.9 mL/min (90-130) L 10/11/21 13:15 Glucose 103 mg/dL (65-115) 10/11/21 13:15 Calculated Osmolality 280 mOsm/kg (285-295) L 10/11/21 13:15 Calcium 9.5 mg/dL (8.5-10.5) 10/11/21 13:15 Total Bilirubin 0.7 mg/dL (0.15-1.2) 10/11/21 13:15 AST 25 U/L (0-40) 10/11/21 13:15 ALT 21 U/L (0-41) 10/11/21 13:15 Alkaline Phosphatase 94 IU/L (40-130) 10/11/21 13:15 Total Protein 7.4 g/dL (6.6-8.7) 10/11/21 13:15 Albumin 4.5 g/dL (3.5-5.2) 10/11/21 13:15 Globulin 2.9 g/dL (1.3-4.6) 10/11/21 13:15 Discharge Plan Discharge Patient Disposition: Home Clinical Impression: Headache, Dizziness Condition: Stable Prescriptions: No Action clopidogrel [Plavix] 75 mg tablet 75 mg PO DAILY Qty: 90 3RF lisinopril-hydrochlorothiazide 10-12.5 mg Tablet 1 tab PO DAILY Centrum Silver Ultra Men's 300-600-300 mcg Tablet 1 tab PO DAILY aspirin 81 mg tablet,chewable 81 mg PO DAILY Qty: 30 0RF Discharge Orders: Discharge ED (Routine); Ordered 10/11/21 Ordered By: Anya Hutchison Referrals: Rosalba Bond MD [Primary Care Provider] - Stand Alone Forms: Work/School Release Coding Level of Care Code ED Full Stack Python Developer for Chg Fwd Exam Comprehensive
--- NOTE | 2021-10-11 12:44 | CT_ITS ---
WS: [id number] CT HEAD TECHNIQUE: Noncontrast CT of the head obtained from the skullbase to the vertex. CLINICAL INFORMATION: AGUILAR, blurry vision COMPARISON: None. DLP: 1153.[address] scans at [facility] use at least one of these dose optimization techniques: automated e xposure control; mA and/or kV adjustment per patient size (includes targeted exams where dose is matc hed to clinical indication); or iterative reconstruction. FINDINGS: No evidence of intracranial hemorrhage or mass effect. Ventricular system and basal cisterns are wyatt nt. Mild small vessel changes with mild parenchymal volume loss. Intracranial vascular calcification. No extra-axial fluid collections. No evidence of mass or mass effect. Incidental cavum septum pelluc idum and vergae. Paranasal sinuses and mastoid air cells are well aerated. .Normal visualized soft tissues. CT/CT head wo con* [id number] IMPRESSION: 1. No evidence of intracranial hemorrhage or mass effect. 2. Mild small vessel changes with mild parenchymal volume loss. 3. Intracranial vascular calcification. 4. No acute intracranial findings.
[2021-10-11 13:05] VITALS: BP 118/73; PULSE 54; RESP 18; TEMP 36.2; O2SAT 99
[2021-10-11 13:35] LABS: Basophils % 0.6 %; Eosinophils # 0.1 10^3/uL (0.0-0.8); Eosinophils % 2.4 %; Hematocrit 43.1 % (42.0-52.0); Hemoglobin 14.3 g/dL (11.7-16.6); Lymphocytes # 1.9 10^3/uL (0.8-4.8); Lymphocytes % 37.2 %; Mean Corpuscular HGB Conc 33.2 g/dL (30.0-36.0); Mean Corpuscular Hemoglobin 30.3 pg (28.0-34.0); Mean Corpuscular Volume 91.3 fl (80-94); Mean Platelet Volume 8.5 fL (7.4-10.4); Monocytes # 0.5 10^3/uL (0.2-0.9); Neutrophils # 2.53 10^3/uL (1.8-7.7); Neutrophils % 50.6 %; Nucleated Red Blood Cells % 0 %; Platelet Count 204 10^3/cmm (130-400); Red Blood Count 4.72 10^6/uL (4.1-5.3); Red Cell Distribution Width 12.9 % (12.1-15.1)
[2021-10-11 13:46] LABS: Alanine Aminotransferase 21 U/L (0-41); Albumin Level 4.5 g/dL (3.5-5.2); Alkaline Phosphatase 94 IU/L (40-130); Aspartate Amino Transferase 25 U/L (0-40); Blood Urea Nitrogen 23 mg/dL (8-23); Calcium 9.5 mg/dL (8.5-10.5); Carbon Dioxide 25 mmol/L (22-29); Chloride 96 mmol/L (98-107); Globulin 2.9 g/dL (1.3-4.6); Glomerular Filtration Rate 83.9 mL/min (90-130); Glucose 103 mg/dL (65-115); Osmolality Calculated 280 mOsm/kg (285-295); Sodium 133 mmol/L (136-145); Total Bilirubin 0.7 mg/dL (0.15-1.2); Total Protein 7.4 g/dL (6.6-8.7)
[2021-10-11 14:11] VITALS: BP 128/73; PULSE 55; RESP 16; O2SAT 98
== END 2021-10-11 14:28 | disposition home or self-care (01) ==
PROVIDERS: Emergency Provider Physician Assistant; PCP Family Medicine
DX: R51.9 Headache, unspecified (principal); R42 Dizziness and giddiness; Z79.02 Long term (current) use of antithrombotics/antiplatelets; Z79.82 Long term (current) use of aspirin; Z87.891 Personal history of nicotine dependence
CPT/HCPCS: 70450; 80053; 85025; 99284

== ENCOUNTER 2021-10-20 07:41 | Outpatient (CLI) | payer OTHER, MEDICARE, SELFPAY ==
--- NOTE | 2021-10-20 08:00 | USCV_ITS ---
Amadeo Meng Age: 66 Gender: M : 1955 Exam Date: 10/20/2021 07:53 Ordering Phys: Ziggy Ramon M.D ([email or web address]) Technologist: Sammie Oshea Exam Location: [facility] Indication: non rheumatic MV insufficiency BP: 126 / 70 HR: 49 Rhythm: Sinus Technical Quality: Adequate MEASUREMENTS (Male / Female) Normal Values 2D ECHO LV Diastolic Diameter PLAX 4.8 cm 4.2 - 5.9 / 3.9 - 5.3 cm LV Systolic Diameter PLAX 3.1 cm LV Chamber Size 4.0 cm IVS Diastolic Thickness 1.1 cm 0.6 - 1.0 / 0.6 - 0.9 cm IVS Systolic Thickness 1.3 cm LVPW Diastolic Thickness 1.1 cm 0.6 - 1.0 / 0.6 - 0.9 cm LVPW Systolic Thickness 1.6 cm RV Chamber Size 2.2 cm LVOT Diameter 2.0 cm LV Ejection Fraction 2D Teich 64.2 % LV Ejection Fraction MOD 2C 45.9 % LV Ejection Fraction 2C AL 45.8 % LA Diameter 3.7 cm LA Width 3.1 cm LA Height 3.2 cm RA Width 3.4 cm RA Height 2.8 cm Aorta at Sinotubular Diameter 4.1 cm IVC Diameter 1.4 cm M-MODE Aortic Annulus Diameter 3.1 cm LA Ao Ratio MM 1.4 MV E Point Septal Separation 0.4 cm DOPPLER AV Peak Velocity 155.3 cm/s LVOT Peak Velocity 83.0 cm/s AV Area Cont Eq vti 1.6 cm squared AV Area Cont Eq pk 1.6 cm squared MV Area PHT 2.4 cm squared Mitral E to A Ratio 1.3 MV E' Velocity 49.0 cm/s Mitral E to MV E' Ratio 7.1 Mitral E to LV E' Lateral Ratio 6.2 Mitral E to LV E' Septal Ratio 8.3 TR Peak Velocity 228.2 cm/s TR Peak Gradient 20.8 mmHg TR Mean Velocity 174.5 cm/s TR Mean Gradient 14.1 mmHg TR Velocity Time Integral 79.6 cm TV Peak E Velocity 54.0 cm/s Right Atrial Pressure 3.0 mmHg Pulmonary Artery Systolic Pressu 23.8 mmHg PV Peak Velocity 49.0 cm/s RV Acceleration Time 0.2 s RV Ejection Time 0.3 s RV AcT/ET 0.5 FINDINGS Left Ventricle Left ventricle is normal in size. LV systolic function is normal with EF of 55 to 60%. No regional wall motion abnormalities are seen. Right Ventricle Normal in size and function Right Atrium Normal in size Left Atrium Normal in size Mitral Valve Mitral valve is thickened. Mild to moderate mitral regurgitation. Aortic Valve Aortic valve is thickened. No significant stenosis or regurgitation Tricuspid Valve Mild tricuspid regurgitation. Normal pulmonary artery systolic pressure. Pulmonic Valve Grossly normal Pericardium Normal Aorta Mildly dilated aortic root IVC CONCLUSIONS LV systolic function is normal with EF of 55 to 60% Mitral valve is thickened. Mild to moderate mitral regurgitation. Aortic valve is thickened Mild tricuspid regurgitation. Compared to prior echocardiogram from 01/16/2021, no significant changes are seen Ziggy Ramon MD (Electronically Signed) Final Date: 29 October 2021 11:26 S
== END 2021-10-20 07:42 | disposition home or self-care (01) ==
LOC: RAD 07:41
PROVIDERS: PCP Family Medicine; Visit Provider Internal Medicine
DX: I08.3 Combined rheumatic disorders of mitral, aortic and tricuspid valves (principal)
CPT/HCPCS: 93306

== ENCOUNTER → 2022-01-12 10:47 | Outpatient (BNVA) | payer OTHER, SELFPAY | PROVIDERS: PCP Family Medicine; Visit Provider Internal Medicine Cardiovascular Disease | DX: I65.29 Occlusion and stenosis of unspecified carotid artery (principal); I34.0 Nonrheumatic mitral (valve) insufficiency | CPT/HCPCS: 99213 ==

== ENCOUNTER 2022-05-17 05:53 | Emergency (ER) | payer OTHER, SELFPAY ==
[2022-05-17 06:00] VITALS: BP 155/87; PULSE 64; RESP 16; TEMP 36.1; O2SAT 97; BMI 26.6
[2022-05-17 06:09] VITALS: PULSE 54; RESP 16; O2SAT 97
--- NOTE | 2022-05-17 06:17 | ED_ITS ---
HPI - Male Genitourinary General: Chief complaint: Urogenital-Male Stated complaint: Left Side Pain\Eyes Blurry Time Seen by Provider: 05/17/22 06:10 Source: patient Mode of arrival: ambulatory History of Present Illness: 66-year-old male presents to the emergency room with complaint of left shoulder pain and left flank pain with urination. Patient is a very difficult historian. Difficult to get out of him if anything exacerbates or relieves it. He does not get diaphoretic or short of breath with it it near as I can get him to answer me. He does not get nauseous with that he does take ibuprofen with his symptoms from time to time which seems to help. Denies any hematuria. MD Complaint: dysuria Onset (ago): week(s) Duration: constant Radiation: left flank Severity: mild Quality: sharp Relieving factors: none Exacerbating factors: none Associated symptoms: Deny discharge, dysuria, fevers/chills, hematuria, nausea, rash, swelling, urinary incontinence, urinary retention, mass or vomiting Review of Systems Const: Denies: fever(s), chills, body aches, change in appetite, fatigue or malaise ENMT: Denies: throat pain, ear or mastoid pain, nasal discharge or nasal congestion Card: Reports: chest pain (Chest and left shoulder); Denies: palpitations, irregular heart rhythm, edema, dyspnea on exertion or orthopnea Resp: Denies: dyspnea, productive cough or non-productive cough GI: Denies: abdominal pain, nausea or vomiting : Reports: flank pain; Denies: difficulty urinating, dysuria, urinary frequency, urinary urgency, urinary incontinence or hematuria Skin/Breast: Denies: rash or pruritus PFSH ED PFSH: Medical History COVID-27 Jul 2020 Lung nodule Mitral valve regurgitation Surgical abdomen Surgical History H/O wrist surgery Family History Mother Cancer Father Cancer Hypertension Denies family history of Diabetes CAD (coronary artery disease) Hyperlipidemia Psychiatric illness Suicide Lung disease Stroke Social History (Reviewed 05/17/22 @ 06:32 by KIANNA Fu Smoking and tobacco status: never smoked Quit status (tobacco): has quit using tobacco Year quit tobacco: 30 years ago 1/2 pack Alcohol intake: former Physical Exam Const: GENERAL APPEARANCE: cooperative and comfortable ORIENTAT ION/CONSCIOUSNESS: Yes awake, Yes oriented to person, Yes oriented to place and Yes oriented to time HENMT: COMMON NORMALS: normocephalic, atraumatic and hearing grossly normal bilaterally HEAD & SCALP: normocephalic and atraumatic Resp: COMMON NORMALS: normal respiratory effort, No retractions, No use of accessory muscles and clear to auscultation bilaterally AUSCULTATION: clear to auscultation bilaterally Cardio: COMMON NORMALS: regular rate, regular rhythm and No murmurs present (Cardio) RATE: regular rate RHYTHM: regular rhythm GI: COMMON NORMALS: Soft to palpation and No hepatosplenomegaly present AUSCULTATION: Yes normoactive bowel sounds PALPATION: Yes Soft to palpation, No Tenderness to palpation present (GI), No Guarding due to palpation present (GI) and Yes No hepatosplenomegaly present Extremity: COMMON NORMALS: normal to inspection, capillary refill normal, no clubbing, cyanosis or edema, no calf tenderness and no pedal edema Neuro: SENSORIUM/ORIENTATION: Yes oriented to person, Yes oriented to place and Yes oriented to time Skin: COMMON NORMALS: no rashes or lesions noted GENERAL SKIN EXAM: no rashes or lesions noted Course Vital Signs: Vital signs: Vital Signs Temperature 97.0 F L 05/17/22 06:00 Pulse Rate 78 05/17/22 10:12 Respiratory Rate 16 05/17/22 10:12 Blood Pressure 138/70 05/17/22 10:12 Pulse Oximetry 98 05/17/22 10:12 Oxygen Delivery Me thod 05/17/22 06:00 MDM - Male Medical Decision Making Labs imaging and EKG reviewed found in the chart no acute ST changes noted. Troponin normal remainder labs otherwise unremarkable. Suspect his complaints are more musculoskeletal in nature there is no emergent process at this point he can return if he has any worsening problems. Medical Records I reviewed the patient's medical records. Lab Data I reviewed the patient's lab results. 05/17/22 06:07 05/17/22 06:07 Radiology Impressions Chest X-Ray 05/17/22 07:06 Impression: Atherosclerosis. Laboratory Results WBC 4.5 10^3/uL (4.0-10.0) 05/17/22 06:07 RBC 4.91 10^6/uL (4.1-5.3) 05/17/22 06:07 Hgb 14.5 g/dL (11.7-16.6) 05/17/22 06:07 Hct 44.5 % (42.0-52.0) 05/17/22 06:07 MCV 90.6 fl (80-94) 05/17/22 06:07 MCH 29.5 pg (28.0-34.0) 05/17/22 06:07 MCHC 32.6 g/dL (30.0-36.0) 05/17/22 06:07 RDW 12.6 % (12.1-15.1) 05/17/22 06:07 Plt Count 196 10^3/cmm (130-400) 05/17/22 06:07 MPV 8.5 fL (7.4-10.4) 05/17/22 06:07 Neut % (Auto) 44.5 % 05/17/22 06:07 Lymph % (Auto) 42.9 % 05/17/22 06:07 [place] % (Auto) 8.1 % 05/17/22 06:07 Eos % (Auto) 3.6 % 05/17/22 06:07 Baso % (Auto) 0.7 % 05/17/22 06:07 Neut # (Auto) 1.98 10^3/uL (1.8-7.7) 05/17/22 06:07 Lymph # (Auto) 1.9 10^3/uL (0.8-4.8) 05/17/22 06:07 Gem # (Auto) 0.4 10^3/uL (0.2-0.9) 05/17/22 06:07 Eos # (Auto) 0.2 10^3/uL (0.0-0.8) 05/17/22 06:07 Baso # (Auto) 0.0 10^3/uL (0.0-0.1) 05/17/22 06:07 Nucleated RBC % (auto) 0 % 05/17/22 06:07 Nucleated RBCs # 0.0 /100WBC 05/17/22 06:07 Sodium 134 mmol/L (136-145) L 05/17/22 06:07 Potassium 4.1 mmol/L (3.5-5.1) 05/17/22 06:07 Chloride 99 mmol/L (98-107) 05/17/22 06:07 Carbon Dioxide 27 mmol/L (22-29) 05/17/22 06:07 Anion Gap 12.1 (5-19) 05/17/22 06:07 BUN 9 mg/dL (8-23) 05/17/22 06:07 Creatinine 0.8 mg/dL (0.7-1.2) 05/17/22 06:07 GFR Calculation 96.1 mL/min (90-130) 05/17/22 06:07 Glucose 100 mg/dL (65-115) 05/17/22 06:07 Calculated Osmolality 277 mOsm/kg (285-295) L 05/17/22 06:07 Calcium 9.4 mg/dL (8.5-10.5) 05/17/22 06:07 Total Bilirubin 0.5 mg/dL (0.15-1.2) 05/17/22 06:07 AST 22 U/L (0-40) 05/17/22 06:07 ALT 18 U/L (0-41) 05/17/22 06:07 Alkaline Phosphatase 82 U/L (40-130) 05/17/22 06:07 Troponin T Baseline 6 ng/L (0-15) 05/17/22 06:07 Troponin T 120 Minute 6.00 ng/L (0-15) 05/17/22 08:11 Delta Troponin T 0 ABS# (0-10) 05/17/22 08:11 Total Protein 7.1 g/dL (6.6-8.7) 05/17/22 06:07 Albumin 4.3 g/dL (3.5-5.2) 05/17/22 06:07 Globulin 2.8 g/dL (1.3-4.6) 05/17/22 06:07 Urine Color Yellow (Yellow) 05/17/22 05:15 Urine Appearance Clear (CLEAR) 05/17/22 05:15 Urine pH 7 (5-7) 05/17/22 05:15 Ur Specific [place] 1.000 (1.005-1.030) L 05/17/22 05:15 Urine Protein Neg (Negative) 05/17/22 05:15 Urine Glucose (UA) Norm (Normal) 05/17/22 05:15 Urine Ketones Negative (Negative) 05/17/22 05:15 Urine Blood Neg (Negative) 05/17/22 05:15 Urine Nitrate Negative (Negative) 05/17/22 05:15 Urine Bilirubin Neg (Negative) 05/17/22 05:15 Urine Urobilinogen Norm mg/dL (Negative) 05/17/22 05:15 Ur Leukocyte Esterase Negative (Negative) 05/17/22 05:15 Discharge Plan Discharge Patient Disposition: Home Clinical Impression: Left shoulder pain, Right flank pain Condition: Stable Prescriptions: No Action clopidogrel [Plavix] 75 mg tablet 75 mg PO DAILY Qty: 90 3RF lisinopril-hydrochlorothiazide 10-12.5 mg Tablet 1 tab PO DAILY Centrum Silver Ultra Men's 300-600-300 mcg Tablet 1 tab PO DAILY aspirin 81 mg tablet,chewable 81 mg PO DAILY Qty: 30 0RF Discharge Orders: Discharge ED (Routine); Ordered 05/17/22 Ordered By: Hugo Denton Referrals: Rosalba Bond MD [Primary Care Provider] - Patient Instructions: Opioid Safety, Pain Management Activity Restrictions/Additional Instructions: You are seen today for left shoulder pain and right flank pain. Your evaluation was unremarkable. Cardiac enzymes and EKGs were negative. Urinalysis was negative. Suspect this is largely musculoskeletal follow-up with her primary care doctor if worsens or changes. Stand Alone Forms: Work/School Release Coding Level of Care Code ED Ophthalmic Medical Technologist for Lilia Farmer
[2022-05-17 06:26] LABS: Basophils % 0.7 %; Eosinophils # 0.2 10^3/uL (0.0-0.8); Eosinophils % 3.6 %; Hematocrit 44.5 % (42.0-52.0); Hemoglobin 14.5 g/dL (11.7-16.6); Lymphocytes # 1.9 10^3/uL (0.8-4.8); Lymphocytes % 42.9 %; Mean Corpuscular HGB Conc 32.6 g/dL (30.0-36.0); Mean Corpuscular Hemoglobin 29.5 pg (28.0-34.0); Mean Corpuscular Volume 90.6 fl (80-94); Mean Platelet Volume 8.5 fL (7.4-10.4); Monocytes # 0.4 10^3/uL (0.2-0.9); Monocytes % 8.1 %; Neutrophils # 1.98 10^3/uL (1.8-7.7); Neutrophils % 44.5 %; Nucleated Red Blood Cells % 0 %; Platelet Count 196 10^3/cmm (130-400); Red Blood Count 4.91 10^6/uL (4.1-5.3); Red Cell Distribution Width 12.6 % (12.1-15.1); White Blood Count 4.5 10^3/uL (4.0-10.0)
[2022-05-17 06:31] LABS: Add Urine Microscopic? NO; Charge for UA Resulting for Rev
[2022-05-17 06:36] LABS: Bilirubin Urine Neg (Negative); Blood Urine Neg (Negative); Glucose Urine UA Norm (Normal); Ketones Urine Negative (Negative); Leukocyte Esterase Urine Negative (Negative); Nitrate Urine Negative (Negative); Protein Urine Neg (Negative); Urine Appearance Clear (CLEAR); Urine Color Yellow (Yellow); Urobilinogen Urine Norm (Negative); pH Urine 7 (5-7)
[2022-05-17 06:41] LABS: Alanine Aminotransferase 18 U/L (0-41); Albumin Level 4.3 g/dL (3.5-5.2); Alkaline Phosphatase 82 U/L (40-130); Anion Gap 12.1 (5-19); Aspartate Amino Transferase 22 U/L (0-40); Blood Urea Nitrogen 9 mg/dL (8-23); Calcium 9.4 mg/dL (8.5-10.5); Carbon Dioxide 27 mmol/L (22-29); Chloride 99 mmol/L (98-107); Globulin 2.8 g/dL (1.3-4.6); Glomerular Filtration Rate 96.1 mL/min (90-130); Glucose 100 mg/dL (65-115); Osmolality Calculated 277 mOsm/kg (285-295); Potassium 4.1 mmol/L (3.5-5.1); Sodium 134 mmol/L (136-145); Total Bilirubin 0.5 mg/dL (0.15-1.2); Total Protein 7.1 g/dL (6.6-8.7)
--- NOTE | 2022-05-17 07:06 | ECG_ITS ---
[facility] Test Date: 2022-05-17 Pat Name: Amadeo Meng Department: Room: Gender: Male Evidence Specialist: : 1955 Requested By: Hugo Rodriguez Order Number: [id number] Tangela MD: Ant Layne M.D. Measurements Intervals [place] Rate: 50 P: 44 [place]: 204 QRS: -41 QRSD: 92 T: 51 QT: 436 QTc: 401 Interpretive Statements SINUS BRADYCARDIA LEFT AXIS DEVIATION [QRS AXIS < -30] Compared to ECG 10/18/2020 23:36:04 Myocardial infarct finding no longer present Electronically Signed On 05-17-2022 23:36:49 SPINNING MACHINE TENDER by Ant Layne M.D. [id number]
--- NOTE | 2022-05-17 07:06 | XR_ITS ---
WS: [id number] Portable AP upright chest, 05/17/2022 Clinical Data: dyspnea/cough Comparison: Two-view chest, 07/29/2020 Findings: No nodules, masses or effusions are seen. The heart is normal. The pulmonary vascularity is not increased. No pneumonia or pneumothorax is seen. The aortic arch and descending thoracic aorta s how mild tortuosity. There are monitor leads on the chest wall. XR/XR chest 1V portable [id number] Impression: Atherosclerosis.
[2022-05-17 07:26] LABS: Troponin(5th) Baseline 6 ng/L (0-15)
[2022-05-17] MEDS: aspirin 81 mg Chew Tablet 324 MG PO (07:58)
[2022-05-17 08:46] LABS: Troponin 5 2HR Delta 0 ABS# (0-10)
--- NOTE | 2022-05-17 09:36 | ECG_ITS ---
[facility] Test Date: 2022-05-17 Pat Name: Amadeo Meng Department: Room: Gender: Male Mathematics Improvement Teacher: : 1955 Requested By: Hugo Rodriguez Order Number: [id number] Tangela MD: Ant Layne M.D. Measurements Intervals [place] Rate: 48 P: 21 [place]: 196 QRS: -36 QRSD: 90 T: 47 QT: 430 QTc: 388 Interpretive Statements SINUS BRADYCARDIA LEFT AXIS DEVIATION [QRS AXIS < -30] Compared to ECG 05/17/2022 07:19:38 No significant changes Electronically Signed On 05-17-2022 23:52:03 ETHICS OFFICER by Ant Layne M.D. [email or web address]
[2022-05-17 10:12] VITALS: BP 138/70; PULSE 78; RESP 16; O2SAT 98
== END 2022-05-17 10:13 | disposition home or self-care (01) ==
PROVIDERS: Emergency Provider Family Medicine; PCP Family Medicine
DX: M25.512 Pain in left shoulder (principal); R10.9 Unspecified abdominal pain; Z79.82 Long term (current) use of aspirin; Z79.02 Long term (current) use of antithrombotics/antiplatelets; Z87.891 Personal history of nicotine dependence
CPT/HCPCS: 36415; 71045; 80053; 81003; 84484; 85025; 93005; 99285

== ENCOUNTER → 2022-08-27 12:58 | Outpatient (BNVA) | payer OTHER, SELFPAY | PROVIDERS: PCP Family Medicine; Visit Provider Internal Medicine | DX: R00.1 Bradycardia, unspecified (principal); I34.0 Nonrheumatic mitral (valve) insufficiency; I65.29 Occlusion and stenosis of unspecified carotid artery; Z86.73 Personal history of transient ischemic attack (TIA), and cerebral infarction without residual deficits | CPT/HCPCS: 99214 ==

== ENCOUNTER 2022-09-12 14:21 | Outpatient (CLI) | payer OTHER, SELFPAY ==
--- NOTE | 2022-09-12 14:45 | USCV_ITS ---
Amadeo Meng Age: 67 Gender: M : 1955 Exam Date: 09/12/2022 15:04 Ordering Phys: Ziggy Ramon M.D ([email or web address]) Technologist: Mickey Galindo Exam Location: [facility] Indication: Carotid stenosis Risk Factors: Previous Vascular Surgery: Right Brachial BP: / Left Brachial BP: / Right Left Velocity (cm/s) Spectral Plaque Velocity (cm/s) Spectral Plaque Syst/Diast Broadening Syst/Diast Broadening 91.50/ 23.20 Prox CCA 131.30/ 27.50 83.10/ 17.90 Mid CCA 115.80/ 24.30 86.20/ 21.80 Distal CCA 105.80/ 30.90 74.90/ 26.90 Prox ICA 109.40/ 33.30 74.70/ 26.30 Mid ICA 110.30/ 49.60 102.50/34.20 Distal ICA 67.40 / 24.80 131.20 ECA 90.10 0.90 ICA/CCA 0.95 Antegrade Vertebral Antegrade 35.20/ 12.30 cm/s 61.10/ 20.40 cm/s Tri Subclavian Tri 79.50 87.40 CONCLUSIONS Right ICA stenosis <50%. Left ICA stenosis <50%. Normal antegrade Doppler flow noted in the right vertebral artery. Normal antegrade Doppler flow noted in the left vertebral artery. Rony Lai MD (Electronically Signed) Final Date: 12 September 2022 16:17 S
--- NOTE | 2022-09-12 15:15 | USCV_ITS ---
Amadeo Meng Age: 67 Gender: M : 1955 Exam Date: 09/12/2022 14:42 Ordering Phys: Ziggy Ramon M.D ([email or web address]) Technologist: Mickey Galindo Exam Location: [facility] [place] Indication: Mitral regurg BP: 100 / 60 HR: 54 Rhythm: Sinus Technical Quality: Adequate MEASUREMENTS (Male / Female) Normal Values 2D ECHO LV Ejection Fraction MOD 2C 66.2 % LV Ejection Fraction 2C AL 65.4 % LA Diameter 3.8 cm LA Width 3.6 cm LA Height 5.3 cm RA Width 3.5 cm RA Height 4.5 cm Aorta at Sinotubular Diameter 2.8 cm IVC Diameter 1.7 cm M-MODE Aortic Annulus Diameter 2.7 cm LA Ao Ratio MM 1.5 MV E Point Septal Separation 0.4 cm DOPPLER AV Peak Velocity 150.3 cm/s LVOT Peak Velocity 92.0 cm/s MV Peak Velocity 132.0 cm/s MV Area PHT 2.6 cm squared Mitral E to A Ratio 1.1 MV E' Velocity 46.0 cm/s Mitral E to MV E' Ratio 5.2 Mitral E to LV E' Lateral Ratio 4.5 Mitral E to LV E' Septal Ratio 6.2 TR Peak Velocity 345.3 cm/s TR Peak Gradient 47.7 mmHg TR Mean Velocity 284.3 cm/s TR Mean Gradient 33.6 mmHg TR Velocity Time Integral 80.4 cm Right Atrial Pressure 3.0 mmHg Pulmonary Artery Systolic Pressu 50.7 mmHg PV Peak Velocity 110.7 cm/s RV Acceleration Time 0.1 s RV Ejection Time 0.3 s RV AcT/ET 0.5 FINDINGS Left Ventricle Left ventricle is normal in size. LV systolic function is normal with EF of 55 to 60%. No regional wall motion abnormalities are seen. Diastolic function is normal. Right Ventricle Normal in size and function Right Atrium Normal in size Left Atrium Normal in size Mitral Valve Mild mitral annular calcification. Mild to moderate mitral regurgitation Aortic Valve Structurally normal aortic valve. No significant stenosis or regurgitation seen. Tricuspid Valve Mild tricuspid regurgitation. Insufficient TR jet to calculate RVSP Pulmonic Valve Not well visualized Pericardium Normal Aorta Normal in size IVC Appears to be normal CONCLUSIONS LV systolic function is normal with EF 55 to 60% Diastolic function is normal. Mild mitral annular calcification. Mild to moderate mitral regurgitation Mild tricuspid regurgitation Compared to prior echocardiogram from 10/2021, no significant changes are seen. Ziggy Ramon MD (Electronically Signed) Final Date: 15 September 2022 09:51 S
== END 2022-09-12 14:22 | disposition home or self-care (01) ==
LOC: RAD 14:22
PROVIDERS: PCP Family Medicine; Visit Provider Internal Medicine
DX: I34.0 Nonrheumatic mitral (valve) insufficiency (principal); I65.23 Occlusion and stenosis of bilateral carotid arteries; I07.1 Rheumatic tricuspid insufficiency
CPT/HCPCS: 93306; 93880

== ENCOUNTER → 2023-10-15 13:41 | Outpatient (BNVA) | payer OTHER, SELFPAY | PROVIDERS: PCP Family Medicine; Visit Provider Internal Medicine | DX: R00.1 Bradycardia, unspecified (principal); I65.29 Occlusion and stenosis of unspecified carotid artery; I34.0 Nonrheumatic mitral (valve) insufficiency | CPT/HCPCS: 99213 ==

== ENCOUNTER 2024-09-28 12:17 | Outpatient (CLI) | payer OTHER, SELFPAY ==
--- NOTE | 2024-09-28 13:30 | USCV_ITS ---
Amadeo Meng Age: 69 Gender: M : 1955 Exam Date: 09/28/2024 12:58 Ordering Phys: Ziggy Ramon M.D ([email or web address]) Technologist: Exam Location: [facility] [place] Indication: cp sob BP: 120 / 70 HR: 57 Rhythm: Sinus Technical Quality: Adequate MEASUREMENTS (Male / Female) Normal Values 2D ECHO LV Diastolic Diameter PLAX 5.0 cm 4.2 - 5.9 / 3.9 - 5.3 cm IVS Diastolic Thickness 0.9 cm 0.6 - 1.0 / 0.6 - 0.9 cm IVS Systolic Thickness 1.6 cm LVPW Diastolic Thickness 1.1 cm 0.6 - 1.0 / 0.6 - 0.9 cm LVPW Systolic Thickness 1.5 cm LVOT Diameter 2.0 cm LV Ejection Fraction 2D Teich 68.5 % LV Ejection Fraction MOD 4C 74.7 % LV Ejection Fraction MOD 2C 61.9 % LV Ejection Fraction 2C AL 62.1 % LA Diameter 3.6 cm RA Systolic Volume 4C AL 38.5 ml RA Systolic Volume 4C MOD 36.3 ml Aorta at Sinotubular Diameter 3.3 cm IVC Diameter 1.2 cm M-MODE LA Ao Ratio MM 1.4 AV Cusp Separation MM 2.2 cm DOPPLER AV Peak Velocity 140.0 cm/s LVOT Peak Velocity 71.0 cm/s AV Area Cont Eq vti 2.2 cm squared AV Area Cont Eq pk 1.7 cm squared MV Peak Velocity 101.0 cm/s MV Area PHT 2.5 cm squared Mitral E to A Ratio 0.8 TV Peak Velocity 222.0 cm/s TR Peak Velocity 276.0 cm/s TR Peak Gradient 30.5 mmHg TV Peak E Velocity 66.0 cm/s PV Peak Velocity 85.0 cm/s FINDINGS Left Ventricle Left ventricle is normal in size. LV systolic function is normal with EF of 60 to 65%. No regional wall motion abnormalities are seen. Grade 1 diastolic dysfunction Right Ventricle Normal in size and function Right Atrium Normal in size Left Atrium Normal in size Mitral Valve Structurally normal mitral valve. Mild to moderate mitral regurgitation. Aortic Valve Structurally normal aortic valve. No significant stenosis or regurgitation Tricuspid Valve Mild tricuspid regurgitation. Pulmonary artery systolic pressure is normal. Pulmonic Valve Not well visualized Pericardium Normal Aorta Normal in size IVC Appears to be normal CONCLUSIONS LV systolic function is normal with EF of 60-65% Grade 1 diastolic dysfunction Mild to moderate mitral regurgitation Mild tricuspid regurgitation Compared to prior echocardiogram from 2022, no significant changes are seen Ziggy Ramon MD (Electronically Signed) Final Date: 28 September 2024 17:30 S
== END 2024-09-28 12:18 | disposition home or self-care (01) ==
LOC: RAD 12:18
PROVIDERS: PCP Family Medicine; Visit Provider Internal Medicine
DX: I34.0 Nonrheumatic mitral (valve) insufficiency (principal); I36.1 Nonrheumatic tricuspid (valve) insufficiency; I51.89 Other ill-defined heart diseases
CPT/HCPCS: 93306

== ENCOUNTER → 2024-10-13 14:18 | Outpatient (BNVA) | payer OTHER, SELFPAY | PROVIDERS: PCP Family Medicine; Visit Provider Internal Medicine | DX: I34.0 Nonrheumatic mitral (valve) insufficiency (principal); I65.29 Occlusion and stenosis of unspecified carotid artery; R00.1 Bradycardia, unspecified; Z79.02 Long term (current) use of antithrombotics/antiplatelets; Z86.73 Personal history of transient ischemic attack (TIA), and cerebral infarction without residual deficits | CPT/HCPCS: 99213 ==

== ENCOUNTER 2024-12-24 12:08 | Emergency (ER) | payer OTHER, SELFPAY ==
[2024-12-24] VITALS (10 sets, daily range): BP systolic 116–138; BP diastolic 70–79; PULSE 58–78; RESP 20; TEMP 36.5; O2SAT 96–100
--- NOTE | 2024-12-24 12:25 | CT_ITS ---
WS: [id number] CT HEAD NONCONTRAST HISTORY: STROKE PROTOCOL TECHNIQUE: Contiguous axial imaging performed through the brain. Bone and soft tissue windows. Sagittal and coronal reformats reviewed. All CT scans at [facility] use at least one of these dose optimization techniques: automated exposure control; mA and/or kV adjustment per patient size (includes targeted exams where dose is matched to clinical indication); or iterative reconstruction. DLP: 1166.70 mGy COMPARISON: 10/11/2021 No acute intracranial hemorrhage, midline shift or mass effect. Very mild atrophy and small vessel disease. No prior infarct. Dense calcifications are noted in the intracranial vertebral and carotid arteries. Ventricles: Normal size with no hydrocephalus. Paranasal sinuses: As visualized are clear. Mastoid air cells: Well pneumatized. Calvarium and scalp: Skull is intact with no soft tissue edema or swelling. CT/CT head thrombolytic 62940 IMPRESSION: 1. No acute intracranial hemorrhage or edema. 2. Stable mild cerebral atrophy and small vessel changes. Notified Hugo Denton DO at 12/24/2024 12:34 PM.
--- NOTE | 2024-12-24 13:01 | XR_ITS ---
WS: [id number] XR chest 1V portable [id number] REASON FOR EXAM: other FINDINGS: No history provided. The chest appears unchanged compared to 05/17/2022. Mild tortuosity and ectasia of the ascending and descending thoracic aorta with calcification of the aortic arch. The heart is at the upper limits of normal in size. Calcified granulomatous disease bilaterally. No acute pulmonary parenchymal or pleural abnormality. 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 Significant degenerative spondylosis of the mid and lower thoracic spine. XR/XR chest 1V portable [id number] IMPRESSION: Stable chest without acute abnormality.
--- NOTE | 2024-12-24 13:02 | ECG_ITS ---
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 Measurements Intervals [place] Rate: 55 P: 47 OK: 195 QRS: -54 QRSD: 94 T: 25 QT: 414 QTc: 399 Interpretive Statements SINUS BRADYCARDIA LEFT AXIS DEVIATION [QRS AXIS < -30] Compared to ECG 05/17/2022 09:36:11 No significant changes Electronically Signed On 12-26-2024 12:03:17 CDT by Ziggy Ramon M.D. [email or web address]
--- OUTSIDE RECORDS SUMMARY | 2024-12-24 13:03 | XMS_ITS | Clinical Summary ---
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
[2024-12-24 13:10] LABS: Hematocrit 39.3 % (37-53); Hemoglobin 13.20 g/dL (11.27-16.99); Mean Corpuscular HGB Conc 33.6 g/dL (30-55); Mean Corpuscular Hemoglobin 29.5 pg (27-33); Mean Corpuscular Volume 87.7 fl (82-101); Nucleated Red Blood Cells % 0 %; Platelet Count 217 10^3/cmm (157-399); Red Blood Count 4.48 10^6/uL (3.85-5.65); White Blood Count 5.41 10^3/uL (3.29-11.43)
[2024-12-24 13:21] LABS: Alanine Aminotransferase 14 U/L (0-41); Albumin Level 4.5 g/dL (3.5-5.2); Alkaline Phosphatase 82 U/L (40-130); Aspartate Amino Transferase 23 U/L (0-40); Blood Urea Nitrogen 11 mg/dL (8-23); Calcium 9.6 mg/dL (8.5-10.5); Carbon Dioxide 25 mmol/L (22-29); Chloride 99 mmol/L (98-107); Creatinine Clr Calc Pharmacy 89.9381; Globulin 2.5 g/dL (1.3-4.6); Glucose 96 mg/dL (65-115); Osmolality Calculated 283 mOsm/kg (285-295); Sodium 137 mmol/L (136-145); Total Protein 7.0 g/dL (6.6-8.7)
[2024-12-24 13:22] LABS: Anion Gap 17.2 (5-19); Potassium 4.2 mmol/L (3.5-5.1)
[2024-12-24 13:25] LABS: Troponin(5th) Baseline 9 ng/L (0-15)
[2024-12-24] MEDS: diphenhydrAMINE 50 mg/mL SDV 1mL 25 MG IVP (13:47)
[2024-12-24 14:04] LABS: Glucose Urine UA Negative (Normal); Nitrate Urine Negative (Negative); Specific Gravity, Urine 1.009 (1.005-1.030)
[2024-12-24 14:10] LABS: Add Urine Microscopic? YES
--- NOTE | 2024-12-24 15:10 | ECG_ITS ---
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 Measurements Intervals [place] Rate: 54 P: 52 SC: 201 QRS: -50 QRSD: 99 T: 21 QT: 440 QTc: 420 Interpretive Statements SINUS BRADYCARDIA LEFT AXIS DEVIATION [QRS AXIS < -30] Compared to ECG 12/24/2024 13:03:47 No significant changes Electronically Signed On 12-26-2024 12:10:12 CDT by Ziggy Ramon M.D. [email or web address]
[2024-12-24 15:39] LABS: Troponin 5 2HR 9.77 ng/L (0-15); Troponin 5 2HR Delta 0.77 ABS# (0-10)
--- NOTE | 2024-12-24 15:48 | W.ED.NEUROSD ---
HPI - Neuro Symptoms/Deficit General: Chief Complaint: Neuro Symptoms/Deficit Stated Complaint: Dizzy Neck Pain Time Seen by Provider: 12/24/24 12:34 History of Present Illness: 69-year-old male with a history of suspected transient ischemic attack (TIA) in 2020 on clopidogrel presented after onset around 8:00?8:30 AM of intermittent headache, neck pain, dizziness, general weakness, and feeling ?not right.? 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 Patient reports intermittent headaches that come and go; currently mild. Patient notes chronic left-sided issues and slurred speech related to missing top teeth/dentures, not new today. Prior MRI in 2020 reportedly showed no focal findings. Carotid study in 2022 showed <50% stenosis. CT brain obtained today; clinician?s preliminary review shows no bleed, mass, infection, or stroke; final radiology read pending. Review of systems: endorses dizziness, headache, transient confusion; denies persistent severe headache at present. Related Data Home Medications ?Medication ?Instructions ?Recorded ?Confirmed lisinopril 10 1 tab PO DAILY 10/18/20 12/24/24 mg-hydrochlorothiazide 12.5 mg tablet [id number]-yv-onqhv 300 mcg-K 60 1 tab PO DAILY 10/18/20 12/24/24 mcg-lycop 600 mcg-lutein 300 mcg tablet (Centrum Silver Ultra Men's) cholecalciferol (vitamin D3) 125 125 mcg PO DAILY 10/15/23 12/24/24 mcg (5,000 unit) capsule Previous Rx's ?Medication ?Instructions ?Recorded clopidogrel 75 mg tablet (Plavix) 75 mg PO DAILY #90 tabs 10/28/20 Allergies Allergy/AdvReac Type Severity Reaction Status Date / Time Penicillins Allergy ADR/ALGY-Pa Verified 10/15/23 14:10 lpitations PFS ED [facility]: Medical History (Updated 12/24/24 @ 15:32 by Jared Jackman DO) Mitral valve regurgitation COVID-27 Jul 2020 Surgical abdomen Lung nodule Surgical History H/O wrist surgery Family History Mother Cancer Father Cancer Hypertension Denies family history of Diabetes CAD (coronary artery disease) Hyperlipidemia Psychiatric illness Suicide Lung disease Stroke Social History Smoking and tobacco/nicotine status: never used tobacco/nicotine Quit status (tobacco/nicotine): has quit using Year quit tobacco: 30 years ago 1/2 pack Alcohol intake: former Substance/Drug Use: never Physical Exam Const: COMMON NORMALS: no acute distress, patient oriented x3 and alert HENMT: COMMON NORMALS: normocephalic and atraumatic HEAD & SCALP: normocephalic and atraumatic Eye: COMMON NORMALS: Equal, round and reactive pupils present, EOMs intact bilaterally and no scleral icterus PUPIL: Yes Equal, round and reactive pupils present Resp: COMMON NORMALS: normal respiratory effort and No retractions Cardio: COMMON NORMALS: regular rate, regular rhythm and No murmurs present (Cardio) RATE: regular rate RHYTHM: regular rhythm GI: COMMON NORMALS: Normal to inspection, nondistended, normoactive bowel sounds present, Soft to palpation and non-tender PALPATION: Yes Soft to palpation Neuro: COMMON NORMALS: patient oriented x3 SENSORIUM/ORIENTATION: Yes alert OTHER: Clear speech. Mild headache at time of exam. Mild trouble with coordination, but foap-ti-ixri and yajqsf-zi-znjg are normal. NIH Stroke Scale (NIHSS) 0 Skin: COMMON NORMALS: no rashes or lesions noted GENERAL SKIN EXAM: no rashes or lesions noted Course Vital Signs: Vital signs: Vital Signs Temperature 97.7 F 12/24/24 12:14 Pulse Rate 70 12/24/24 15:47 Respiratory Rate 20 H 12/24/24 12:14 Blood Pressure 137/77 12/24/24 15:47 Pulse Oximetry 98 12/24/24 15:47 Oxygen Delivery Me thod Room Air 12/24/24 15:00 MDM - Neuro Symptoms/Deficit Medical Decision Making 69-year-old male on clopidogrel with history of suspected transient ischemic attack (TIA) presents with intermittent headache, dizziness, transient confusion, and feeling off since ~08:00?08:30; symptoms worsened at work, currently mild headache. [Pertinent Vital Signs Not Available] Physical exam: clear speech; mild headache; mild coordination trouble; wavj-gh-frdq and slcyst-li-jbcz normal; NIHSS 0. [Pertinent Labs Not Available] Imaging results: CT brain preliminary review shows no bleed, mass, infection, or acute stroke; final radiology read pending. Possible acute stroke considered; current CT and NIHSS 0 reduce concern for acute intracranial process at this time. Symptoms may be headache-related; chronic speech changes attributed to dentures per patient. Treat headache symptomatically; await radiology final read of CT brain and reassess. CT of the brain shows nothing acute. Labs are unremarkable. After receiving IV fluids, Benadryl, Compazine, headache is gone and he feels back at baseline and able to walk around and has good coordination. I do not suspect stroke. Will be discharged home in stable and improved condition. Lab Data 12/24/24 12:35 12/24/24 12:[address] 12/24/24:25 IMPRESSION: 1. No acute intracranial hemorrhage or edema. 2. Stable mild cerebral atrophy and small vessel changes. Notified Hugo Denton DO at 12/24/2024 12:34 PM. Chest X-Ray 12/24/24 13:01 IMPRESSION: Stable chest without acute abnormality. Laboratory Results WBC 5.41 10^3/uL (3.29-11.43) 12/24/24 12:35 RBC 4.48 10^6/uL (3.85-5.65) 12/24/24 12:35 Hgb 13.20 g/dL (11.27-16.99) 12/24/24 12:35 Hct 39.3 % (37-53) 12/24/24 12:35 MCV 87.7 fl (82-101) 12/24/24 12:35 MCH 29.5 pg (27-33) 12/24/24 12:35 MCHC 33.6 g/dL (30-55) 12/24/24 12:35 RDW 12.2 % (12.1-15.1) 12/24/24 12:35 Plt Count 217 10^3/cmm (157-399) 12/24/24 12:35 MPV 8.6 fL (7.4-10.4) 12/24/24 12:35 Neut % (Auto) 57.7 % 12/24/24 12:35 Lymph % (Auto) 29.9 % 12/24/24 12:35 [place] % (Auto) 8.7 % 12/24/24 12:35 Eos % (Auto) 2.6 % 12/24/24 12:35 Baso % (Auto) 0.9 % 12/24/24 12:35 Neut # (Auto) 3.12 10^3/uL (1.8-7.7) 12/24/24 12:35 Lymph # (Auto) 1.6 10^3/uL (0.8-4.8) 12/24/24 12:35 [place] # (Auto) 0.5 10^3/uL (0.2-0.9) 12/24/24 12:35 Eos # (Auto) 0.1 10^3/uL (0.0-0.8) 12/24/24 12:35 Baso # (Auto) 0.1 10^3/uL (0.0-0.1) 12/24/24 12:35 Nucleated RBC % (auto) 0 % 12/24/24 12:35 Nucleated RBCs # 0.0 /100WBC 12/24/24 12:35 Sodium 137 mmol/L (136-145) 12/24/24 12:35 Potassium 4.2 mmol/L (3.5-5.1) 12/24/24 12:35 Chloride 99 mmol/L (98-107) 12/24/24 12:35 Carbon Dioxide 25 mmol/L (22-29) 12/24/24 12:35 Anion Gap 17.2 (5-19) 12/24/24 12:35 BUN 11 mg/dL (8-23) 12/24/24 12:35 Creatinine 0.7 mg/dL (0.7-1.2) 12/24/24 12:35 GFR Calculation Not Reportable 12/24/24 12:35 Glucose 96 mg/dL (65-115) 12/24/24 12:35 POC Glucose 98 mg/dL (70-110) 12/24/24 12:38 Calculated Osmolality 283 mOsm/kg (285-295) L 12/24/24 12:35 Calcium 9.6 mg/dL (8.5-10.5) 12/24/24 12:35 Total Bilirubin 0.7 mg/dL (0.15-1.2) 12/24/24 12:35 AST 23 U/L (0-40) 12/24/24 12:35 ALT 14 U/L (0-41) 12/24/24 12:35 Alkaline Phosphatase 82 U/L (40-130) 12/24/24 12:35 Troponin T Baseline 9 ng/L (0-15) 12/24/24 12:35 Troponin T 120 Minute 9.77 ng/L (0-15) 12/24/24 14:43 Delta Troponin T 0.77 ABS# (0-10) 12/24/24 14:43 Total Protein 7.0 g/dL (6.6-8.7) 12/24/24 12:35 Albumin 4.5 g/dL (3.5-5.2) 12/24/24 12:35 Globulin 2.5 g/dL (1.3-4.6) 12/24/24 12:35 Urine Color Yellow (Yellow) 12/24/24 13:30 Urine Appearance Clear (CLEAR) 12/24/24 13:30 Urine pH 7.0 (5-7) 12/24/24 13:30 Ur Specific Colon 1.009 (1.005-1.030) 12/24/24 13:30 Urine Protein Negative (Negative) 12/24/24 13:30 Urine Glucose (UA) Negative (Normal) 12/24/24 13:30 Urine Ketones Negative (Negative) 12/24/24 13:30 Urine Blood Negative (Negative) 12/24/24 13:30 Urine Nitrate Negative (Negative) 12/24/24 13:30 Urine Bilirubin Negative (Negative) 12/24/24 13:30 Urine Urobilinogen 1.0 mg/dL (Negative) 12/24/24 13:30 Ur Leukocyte Esterase Negative (Negative) 12/24/24 13:30 Urine RBC 0-2 /hpf (0-2) 12/24/24 13:30 Urine WBC 0-5 /hpf (0-5) 12/24/24 13:30 Ur Squamous Epith Cells 0-5 /hpf (0-5) 12/24/24 13:30 Amorphous Sediment Not Reportable 12/24/24 13:30 Urine Bacteria None seen /hpf (NONE) 12/24/24 13:30 Hyaline Casts 0-4 /lpf H 12/24/24 13:30 All radiology interpretation(s) finalized by discharge EKG Data EKG 1: Interpretation: Time?1510?interpreted by me: Sinus bradycardia, rate of 54, no ST segment elevation or depression, no T wave inversions, QTc = 427 Discharge Plan Discharge Patient Disposition: Home Clinical Impression: Headache with orthostatic component, not elsewhere classified Condition: Stable Prescriptions: No Action clopidogrel [Plavix] 75 mg tablet 75 mg PO DAILY Qty: 90 3RF cholecalciferol (vitamin D3) 125 mcg (5,000 unit) capsule 125 mcg PO DAILY lisinopril-hydrochlorothiazide 10-12.5 mg Tablet 1 tab PO DAILY Centrum Silver Ultra Men's 300-600-300 mcg Tablet 1 tab PO DAILY Discharge Orders: Discharge ED (Routine); Ordered 12/24/24 Ordered By: Jared Jackman Referrals: Rosalba Bond MD [Primary Care Provider, Family Practice] Discharge Diet: Usual diet Discharge Activity: Increase activity as tolerated Patient Instructions: Acute Headache (ED), Patient Portal & [facility] Instructions Print Language: Albanian Coding Level of Care Code ED Speech Language Pathologist for Lilia Farmer
== END 2024-12-24 15:48 | disposition home or self-care (01) ==
PROVIDERS: Emergency Provider Student in an Organized Health Care Education/Training Program; PCP Family Medicine
DX: R51.0 Headache with orthostatic component, not elsewhere classified (principal); Z79.02 Long term (current) use of antithrombotics/antiplatelets; Z87.891 Personal history of nicotine dependence
CPT/HCPCS: 36415; 36416; 70450; 71045; 80053; 81001; 82962; 84484; 85025; 93005; 96361; 96374; 96375; 99285; J0780; J1200; J7030